=== PATIENT | male | born 1995 | race Caucasian/White ===

== ENCOUNTER 2019-06-17 13:58 | Inpatient (IN) | payer OTHER, MEDICARE, MEDICAID ==
--- NOTE | 2019-06-17 14:34 | ED ---
General Adult HPI - General Chief complaint: Psychiatric Symptoms Stated complaint: Mental health Time Seen by Provider: 06/17/19 14:15 Source: patient, police, RN notes reviewed Mode of arrival: ambulatory Limitations: no limitations - History of Present Illness Initial comments: 23-year-old male presents emergency department with police for psychiatric evaluation. Patient is having bizarre behavior, very paranoid delusional thoughts. Patient believes that his family is controlled lysis. Patient does admit to drug abuse. Denies alcohol abuse no physical complaints. Denies any homicidal or suicidal. - Related Data Home Medications Medication Instructions Recorded Confirmed Paliperidone IM [Invega Sustenna] 234 mg IM Q21D 06/17/19 06/17/19 busPIRone HCL 15 mg PO BID 06/17/19 06/17/19 Allergies Allergy/AdvReac Type Severity Reaction Status Date / Time Penicillins Allergy Unknown Verified 06/17/19 17:08 Review of Systems ROS Statement: Those systems with pertinent positive or pertinent negative responses have been documented in the HPI. ROS Other: All systems not noted in ROS Statement are negative. Past Medical History Past Medical History: No Reported History History of Any Multi-Drug Resistant Organisms: None Reported Past Surgical History: No Surgical Hx Reported Past Psychological History: Schizoaffective Disorder, Schizophrenia Smoking Status: Current every day smoker Past Alcohol Use History: None Reported, Occasional Past Drug Use History: Marijuana General Exam Limitations: no limitations General appearance: alert, in no apparent distress Head exam: Present: atraumatic, normocephalic, normal inspection Eye exam: Present: normal appearance, PERRL, EOMI. Absent: scleral icterus, conjunctival injection, periorbital swelling ENT exam: Present: normal oropharynx, mucous membranes dry. Absent: normal exam Neck exam: Present: normal inspection, full ROM. Absent: tenderness, meningismus, lymphadenopathy Respiratory exam: Present: normal lung sounds bilaterally. Absent: respiratory distress, wheezes, rales, rhonchi, stridor Cardiovascular Exam: Present: regular rate, normal rhythm, normal heart sounds. Absent: systolic murmur, diastolic murmur, rubs, gallop, clicks Psychiatric exam: Present: manic Skin exam: Present: warm, dry, intact, normal color. Absent: rash Course Vital Signs 06/17/19 14:11 Temperature 97.3 F L Pulse Rate 100 Respiratory 17 Rate Blood Pressure 143/79 O2 Sat by Pulse 100 Oximetry - Reevaluation(s) Reevaluation #1: 06/17/19 16:38 When the patient was changing into a gown nurse noted a bandage on his lower leg. This was evaluated he has 3 separate 3 cm circular malin and which there is noted Silvadene applied. Patient states that he burned himself to GERD of his tattoo. Patient was seen by his PCP and treated for this. Patient's tetanus is up-to-date. Medical Decision Making - Medical Decision Making Patient will be admitted for psychiatric treatment. - Lab Data Lab Results 06/17/19 Range/Units 15:02 Urine Opiates Screen Not Detected (NotDetected) Ur Oxycodone Screen Not Detected (NotDetected) Urine Methadone Screen Not Detected (NotDetected) Ur Propoxyphene Screen Not Detected (NotDetected) Ur Barbiturates Screen Not Detected (NotDetected) U Tricyclic Antidepress Not Detected (NotDetected) Ur Phencyclidine Scrn Not Detected (NotDetected) Ur Amphetamines Screen Not Detected (NotDetected) U Methamphetamines Scrn Not Detected (NotDetected) U Benzodiazepines Scrn Not Detected (NotDetected) Urine Cocaine Screen Not Detected (NotDetected) U Marijuana (THC) Screen Detected H (NotDetected) Disposition Clinical Impression: Psychosis Disposition: TRANSFER TO PSYCH HOSP/UNIT Time of Disposition: 17:51
[2019-06-17 15:57] LABS: Amphetamine Screen,Urine Not Detected (NotDetected); Barbiturate Screen,Urine Not Detected (NotDetected); Benzodiazepines Screen,Urine Not Detected (NotDetected); Cocaine Screen,Urine Not Detected (NotDetected); Methadone Screen, Urine Not Detected (NotDetected); Opiate Screen,Urine Not Detected (NotDetected); Oxycodone Screen, Urine Not Detected (NotDetected); Phencyclidine Screen,Urine Not Detected (NotDetected); Tricyclic Antidepressant,Urine Not Detected (NotDetected); Urn Cannabinoid Scrn Detected (NotDetected)
[2019-06-17] MEDS ORDERED: ZIPRASIDONE 20 MG VIAL IM PRN (17:54)
[2019-06-17] MEDS ORDERED: MAG HYDROX/AL HYDROX/SIMETH 30 ML CUP PO PRN (17:54)
[2019-06-17] MEDS ORDERED: LORazepam 1 MG TAB PO PRN (17:54)
[2019-06-17] MEDS ORDERED: MAGNESIUM HYDROXIDE 2,400 MG/10 ML CUP PO PRN (17:54)
[2019-06-17] MEDS ORDERED: ACETAMINOPHEN TAB 325 MG TAB PO PRN (17:54)
[2019-06-17] MEDS ORDERED: PALIPERIDONE 234 MG IM SCH (18:00)
--- NOTE | 2019-06-18 01:38 | P.CONS ---
History of Present Illness - Reason for Consult Consult date: 06/18/19 - History of Present Illness Patient is a 24-year-old male with a PMH of schizoaffective disorder and marijuana abuse who was brought to the ED due to disorganized and strange behavior. The patient was noted to be delusional and was admitted to the mental health unit for further management. Patient was evaluated at the bedside. He reported feeling okay. Noted that he is currently in the process of joining the [employer] which is why he had to burn off his tatto near his R ankle. 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 He denied any additional complaints. He denied chest pain, shortness of breath, nausea, vomiting, fever, chills, abdominal pain. He notes only mild pain at the site of the malin. Past Medical History Past Medical History: No Reported History History of Any Multi-Drug Resistant Organisms: None Reported Past Surgical History: No Surgical Hx Reported Past Psychological History: Schizoaffective Disorder, Schizophrenia Smoking Status: Current every day smoker Past Alcohol Use History: None Reported, Occasional Past Drug Use History: Marijuana Medications and Allergies Home Medications Medication Instructions Recorded Confirmed Type Paliperidone IM [Invega Sustenna] 234 mg IM Q21D 06/17/19 06/17/19 History busPIRone HCL 15 mg PO BID 06/17/19 06/17/19 History Allergies Allergy/AdvReac Type Severity Reaction Status Date / Time Penicillins Allergy Unknown Verified 06/17/19 17:08 Physical Exam Vitals: Vital Signs Temp Pulse Pulse Resp BP BP Pulse Ox 06/17/19 18:55 97 F L 89 16 134/80 06/17/19 18:15 97.7 F 68 18 113/59 95 06/17/19 14:11 97.3 F L 100 17 143/79 100 Intake and Output 06/17/19 06/17/19 06/18/19 14:59 22:59 06:59 Other: Weight 81.647 kg 87.146 kg General: non toxic, no distress, appears at stated age, normal weight Derm: circular malin noted near R ankle w/ dressing, warm, dry Head: atraumatic, normocephalic, symmetric Eyes: EOMI, no lid lag, anicteric sclera, pupils equal round reactive to light ENT: Nose and ears atraumatic, no thrush, no pharyngeal erythema Neck: No thyromegaly, no cervical lymphadenopathy, trachea midline, supple Mouth: no lip lesion, mucus membranes moist Cardiovascular: S1S2 reg, no murmur, positive posterior tibial pulse bilateral, no edema, capillary refill less than 2 seconds Lungs: CTA bilateral, no rhonchi, no rales , no accessory muscle use Abdominal: soft, nontender to palpation, no guarding, no appreciable or ganomegaly, normal bowel sounds Ext: no gross muscle atrophy, muscle strength 5 out of 5 in all 4 extremities grossly, no contractures, Neuro: CN II-XI grossly intact, light touch intact all 4 extremities, finger to nose within normal limits, Psych: Alert, oriented, delusional Results Labs: Abnormal Lab Results - Last 24 Hours (Table) 06/17/19 Range/Units 15:02 U Marijuana (THC) Screen Detected H (NotDetected) Assessment and Plan Plan: Malin overlying R medial ankle and leg -C/w wound care with Silvadene cream and dressing changes Psychosis -As per psychiatry Marijuana abuse -Advised patient on importance of cessation Thank you for allowing us to participate in the care of this patient. We will follow peripherally. Do not hesitate to contact us with questions. Someone can be reached from the [facility] hospitalist group at all hours of the day at [phone].
[2019-06-18 08:04] LABS: Basophils % (A) 0 %; Eosinophils # (A) 0.2 k/uL (0-0.7); Eosinophils % (A) 4 %; HCT 49.4 % (39.0-53.0); HGB 15.7 gm/dL (13.0-17.5); Lymphocytes # (A) 0.8 k/uL (1.0-4.8); Lymphocytes % (A) 13 %; MCH 26.5 pg (25.0-35.0); MCHC 31.7 g/dL (31.0-37.0); MCV 83.7 fL (80.0-100.0); Monocytes # (A) 0.2 k/uL (0-1.0); Monocytes % (A) 4 %; Neutrophils # (A) 4.8 k/uL (1.3-7.7); Neutrophils % (A) 78 %; Platelet Count 265 k/uL (150-450); RBC 5.91 m/uL (4.30-5.90); RDW 12.6 % (11.5-15.5); WBC 6.1 k/uL (3.8-10.6)
[2019-06-18 08:11] LABS: ALT 13 U/L (4-49); AST 20 U/L (17-59); African American GFR (CKD) >90 (>60 ml/min/1.73 sqM); Albumin 4.2 g/dL (3.5-5.0); Alkaline Phosphatase 93 U/L (38-126); Anion Gap 10 mmol/L; Blood Urea Nitrogen 8 mg/dL (9-20); Calcium 9.5 mg/dL (8.4-10.2); Carbon Dioxide 24 mmol/L (22-30); Chloride 105 mmol/L (98-107); Cholesterol 180 mg/dL (<200); Glucose 89 mg/dL (74-99); HDL Cholesterol 43 mg/dL (40-60); LDL Cholesterol,Calculated 120 mg/dL (0-99); Non-African American GFR(CKD) >90 (>60 ml/min/1.73 sqM); Potassium 4.4 mmol/L (3.5-5.1); Sodium 139 mmol/L (137-145); Total Bilirubin 0.7 mg/dL (0.2-1.3); Total Protein 6.8 g/dL (6.3-8.2); Triglycerides 86 mg/dL (<150)
[2019-06-18] MEDS ORDERED: PALIPERIDONE 234 MG IM SCH (10:00)
[2019-06-18] MEDS: NICOTINE 14MG/24HR PATCH TRANSDERM SCH (10:03)
[2019-06-18] MEDS: PALIPERIDONE 6 MG TAB.ER.24 PO SCH (10:26)
[2019-06-18] MEDS: clonazePAM 0.5 MG TAB PO PRN (10:26)
--- NOTE | 2019-06-18 10:42 | P.HP ---
Psychiatric H&P - . H&P Date: 06/18/19 History & Physical: IDENTIFYING Data: Roly Welch is a 24-year-old single male who currently lives with his foster parents in [facility], unemployed on SSD, has psychiatric history of schizoaffective disorder, and reports no history of medical problems. The patient has been admitted to our inpatient psychiatric services after been transferred from [facility] emergency room. Patient was initially brought to ED by the police with a petition for admission due to severe delusion and not able to take care of himself. The patient has been admitted on involuntary basis to our service, but during psychiatric evaluation he exhibits understanding of need for mental health treatment and he signed voluntary papers. CHIEF COMPLAINT: "My mind was messed up, maybe because I ate a whole can of butter." HISTORY OF PRESENT ILLNESS: The patient presented to emergency room by the police with a petition that patient has been delusional and he believes that he is a member of [employer] and thinks that his mother is a member of a [employer] and he is willing to kill her if she really is. According to ED note the patient presented with bizarre behavior, very paranoid and delusional. Patient admits to use drugs, denies homicidal or suicidal thoughts. During psychiatric evaluation today the patient presented with delusional thoughts, very guarded and paranoid. He reports history of a schizoaffective disorder as a psychiatric diagnosis but he didn't give clear information about when was the last time he received any treatment. Patient attributed his delusional thoughts because he ate a whole can of butter yesterday. He reports that he called police on the road and told them that his foster parents are terrorist. When asking today about his thoughts he was doubting that his parents are terrorist, but he still believes that he is a [employer] member. When asking him to give more information about being [employer] member, he answered "it's a long story and I can't tell". The patient was tense, irritable with times is staring and stuttering with his speech. He was not very informative giving history and he refused to answer many questions. Patient reports history of depression started when he was 12-year-old and he reports previous history of suicidal attempts, last time was 6 months ago when he tried to cut his wrist. He reports previous episodes of psychosis mainly hearing voices and visual hallucinations and first time has psychotic episode was at age 18. He denies any previous manic episodes. Patient reports last time was feeling "very bad depression" was one year ago. Patient denies any current symptoms of depression including feeling guilty, lack of motivation, sleep disturbances, feeling hopeless, helpless and worthless, or suicide. He denies any current or history of bigg including symptoms of a euphoric mood, lack need to sleep due to increased activities, sense of being invincible, or irrational behavior. He admits for history of psychosis but he was vague answering questions about his symptoms. He reports last time was hearing voices yesterday and the voices was telling him his parents are terrorist. He couldn't recognize the voice if a male or female and refused to give any further information. He reports history of visual hallucinations in the past that he used to see "figures", with the last time "long time ago". Even the patient denies feeling paranoid, but he was presented very paranoid, guarded, and refused to answer many questions "it is too personal". He admits for suffering from severe anxiety for most of the time with nonstop racing thoughts "couldn't shut my mind down", feeling tense for most of the time, and couldn't relax. He reports history of panic attacks with the last time was one year ago "it was not often". He admits for history of nightmares but he refused to give any further information. PAST PSYCHIATRIC HISTORY: Previous diagnoses: Reports previous diagnosis of schizoaffective disorder Previous psychiatric hospitalizations: Reports history of previous multiple psychiatric hospitalizations and last time was 6 months ago at [facility] . Previous suicide attempts: Admits for previous suicidal attempts but any further information besides last time was 6 months ago when he tried to cut his wrist. Previous outpatient psychiatric treatment: Reports previous outpatient psychiatric treatment, but was very vague but when was the last time seen by psychiatrist or received any mental health treatment. He was talking about 2 years was the last time seen by psychiatrist, but reports last time he received in [facility] was "few month ago". Current psychiatric medications: Patient is not currently taking any psychiatric medications. Previous medication trials: Patient was not able to give any informative history about his previous psychiatric medication trials, but he mentioned previous treatment with in [place], Wellbutrin, Klonopin, BuSpar, Abilify, Seroquel. SUBSTANCE ABUSE HISTORY: Nicotine: Admits for smoking cigarettes "a lot". Alcohol: Reports drinking "sometimes, not very often"., Last time was a week ago. Denies any history of DUIs, severe alcohol intoxication, or alcohol withdrawal symptoms. Admits for smoking marijuana daily since he was 15 with the last time was yesterday. When he was asking about use of other street drugs, he refused to answer "why you asking me these questions". Social History: Patient was not cooperative giving informative social history, but he reports was born in [place] and raised by his biological parents until he was 15 then he moved to foster parents. Reports completed school up to 11th grade. History of psychological trauma: Denies history of psychological trauma FAMILY HISTORY: Patient doesn't know much about his biological family, but reports his bio logical mother suffered from depression. Medical History: Denies any history of medical problems MENTAL STATUS EVALUATION: Appearance: Appears stated age, not well groomed, partially disheveled, average body built, and no specific features. Gait/ posture: Steady gait, normal arm swinging, no abnormal movements, with relaxed posture. Attitude and Behavior: Not cooperative, poor eye contact during course of interview. Motor Activity: Increased psychomotor activity. Speech: spontaneous, decreased rate, rhythm, and articulation. Increased volume. To some degree pressured. Language: Articulating, naming objects and repeat phrases. Mood: Irritable Affect: Restricted. Thought process: impoverished, thought blocking. Association: loose Thought content: Paranoid delusions, grandiosity delusions, denies suicidal thoughts, denies homicidal thoughts, Denies intentions, or plans. Perception: Reports auditory hallucinations Orientation: Patient was oriented to time, place, person, and situation Insight regarding psychiatric condition: Fair Judgment regarding daily activities and social situation: Fair Impulse control: Limited Strengths: Social Security disability. Housing. Stable general medical condition. Challenges: Poor compliance with treatment. Limited access to treatment. Marijuana use Allergies Allergy/AdvReac Type Severity Reaction Status Date / Time Penicillins Allergy Unknown Verified 06/17/19 17:08 Vital Signs Temp 97 F L 06/17/19 18:55 Pulse 89 06/17/19 18:55 Resp 16 12/24/19 18:55 BP 134/80 06/17/19 18:55 Pulse Ox 95 06/17/19 18:15 Intake & Output 06/17/19 06/18/19 06/18/19 18:59 06:59 18:59 Weight 87.146 kg Review of Lab results: Laboratory Last Values WBC 6.1 k/uL (3.8-10.6) 06/18/19 07:25 RBC 5.91 m/uL (4.30-5.90) H 06/18/19 07:25 Hgb 15.7 gm/dL (13.0-17.5) 06/18/19 07:25 Hct 49.4 % (39.0-53.0) 06/18/19 07:25 MCV 83.7 fL (80.0-100.0) 06/18/19 07:25 MCH 26.5 pg (25.0-35.0) 06/18/19 07:25 MCHC 31.7 g/dL (31.0-37.0) 06/18/19 07:25 RDW 12.6 % (11.5-15.5) 06/18/19 07:25 Plt Count 265 k/uL (150-450) 06/18/19 07:25 Neutrophils % 78 % 06/18/19 07:25 Lymphocytes % 13 % 06/18/19 07:25 Monocytes % 4 % 06/18/19 07:25 Eosinophils % 4 % 06/18/19 07:25 Basophils % 0 % 06/18/19 07:25 Neutrophils # 4.8 k/uL (1.3-7.7) 06/18/19 07:25 Lymphocytes # 0.8 k/uL (1.0-4.8) L 06/18/19 07:25 Monocytes # 0.2 k/uL (0-1.0) 06/18/19 07:25 Eosinophils # 0.2 k/uL (0-0.7) 06/18/19 07:25 Basophils # 0.0 k/uL (0-0.2) 06/18/19 07:25 Sodium 139 mmol/L (137-145) 06/18/19 07:25 Potassium 4.4 mmol/L (3.5-5.1) 06/18/19 07:25 Chloride 105 mmol/L (98-107) 06/18/19 07:25 Carbon Dioxide 24 mmol/L (22-30) 06/18/19 07:25 Anion Gap 10 mmol/L 06/18/19 07:25 BUN 8 mg/dL (9-20) L 06/18/19 07:25 Creatinine 1.02 mg/dL (0.66-1.25) 06/18/19 07:25 Est GFR (CKD-EPI)AfAm >90 (>60 ml/min/1.73 sqM) 06/18/19 07:25 Est GFR (CKD-EPI)NonAf >90 (>60 ml/min/1.73 sqM) 06/18/19 07:25 Glucose 89 mg/dL (74-99) 06/18/19 07:25 Calcium 9.5 mg/dL (8.4-10.2) 06/18/19 07:25 Total Bilirubin 0.7 mg/dL (0.2-1.3) 06/18/19 07:25 AST 20 U/L (17-59) 06/18/19 07:25 ALT 13 U/L (4-49) 06/18/19 07:25 Alkaline Phosphatase 93 U/L (38-126) 06/18/19 07:25 Total Protein 6.8 g/dL (6.3-8.2) 06/18/19 07:25 Albumin 4.2 g/dL (3.5-5.0) 06/18/19 07:25 Triglycerides 86 mg/dL (<150) 06/18/19 07:25 Cholesterol 180 mg/dL (<200) 06/18/19 07:25 LDL Cholesterol, Calc 120 mg/dL (0-99) H 06/18/19 07:25 HDL Cholesterol 43 mg/dL (40-60) 06/18/19 07:25 TSH 0.542 mIU/L (0.465-4.680) 06/18/19 07:25 Urine Opiates Screen Not Detected (NotDetected) 06/17/19 15:02 Ur Oxycodone Screen Not Detected (NotDetected) 06/17/19 15:02 Urine Methadone Screen Not Detected (NotDetected) 06/17/19 15:02 Ur Propoxyphene Screen Not Detected (NotDetected) 06/17/19 15:02 Ur Barbiturates Screen Not Detected (NotDetected) 06/17/19 15:02 U Tricyclic Antidepress Not Detected (NotDetected) 06/17/19 15:02 Ur Phencyclidine Scrn Not Detected (NotDetected) 06/17/19 15:02 Ur Amphetamines Screen Not Detected (NotDetected) 06/17/19 15:02 U Methamphetamines Scrn Not Detected (NotDetected) 06/17/19 15:02 U Benzodiazepines Scrn Not Detected (NotDetected) 06/17/19 15:02 Urine Cocaine Screen Not Detected (NotDetected) 06/17/19 15:02 U Marijuana (THC) Screen Detected (NotDetected) H 06/17/19 15:02 Formulation/Summary: No clear information about family history of mental illness, but probably his mother was suffering from depression as he reported, and the patient has been using marijuana on a daily basis which was confronted by the drug screen and both family history and marijuana use are contributing biological factors predisposing to his presentation. Current precipitating factors include: Note taking psychiatric medications , no access to treatment , Poor compliance with treatment Perpetuating factors: Using marijuana Protective biological factors: Restart on medications and continue follow-up after discharge Assessment: Schizoaffective disorder bipolar type. Rule out Cannabis use disorder, severe. Rule out generalized anxiety disorder. TREATMENT PLAN/RECOMMENDATIONS: Medical Decision making: The patient presented with severe psychosis, delusional, and bizarre behavior. The patient at high risk to hurt himself and others if in the is not in the inpatient setting. The patient's psychiatric symptoms are not stable and he needs further management of psychiatric medications and further planning for discharge. Therefore, inpatient level of care is needed. Continue the patient inpatient for safety. Continue the patient under 15 minutes safe check for safety. The patient will also be provided with individual therapy, group therapy, substance abuse counseling, gain insight, and coping skills. Consider medical consultation if any acute medical issue arise. Medications: Start invega 6 mg daily for psychotic symptoms and as a mood stabilizer. Start Klonopin 0.5 mg 3 times daily as needed for anxiety. Prognosis is guarded, considering the patient's history of poor compliance with treatment, and apparently was not receiving any medications for the last few months. The patient will be assessed on daily basis for his depression, suicidal ideation, and will be discharged back to his outpatient mental health provider upon stabilization. EXPECTED LENGTH OF STAY: 5-7 days. 06/18/19 10:12
[2019-06-18] MEDS ORDERED: INVEGA SUSTENNA 234 MG IM SCH (12:00)
[2019-06-19] MEDS: PALIPERIDONE 6 MG TAB.ER.24 PO SCH (08:44)
[2019-06-19] MEDS: NICOTINE 14MG/24HR PATCH TRANSDERM SCH (08:44)
[2019-06-19] MEDS: clonazePAM 0.5 MG TAB PO PRN (08:44)
[2019-06-19 10:24] LABS: Hemoglobin A1C 5.1 % (4.0-6.0)
[2019-06-19] MEDS ORDERED: traZODone HCL 50 MG TAB PO PRN (12:21)
--- NOTE | 2019-06-19 12:21 | P.PN ---
Progress Note - Text Progress Note Date: 06/19/19 Chief complaint: "I feel tired now and little tense" Subjective: The patient has been seen today as follow-up, chart reviewed, case discussed with the treatment team. Patient slept about one hour last night. Patient has not been going to groups and other unit activities. Patient reports eating "good" with no appetite problems. Patient continued to present psychotic and as per nursing report he was pacing all night. Patient still delusional that he is a [employer] member. He was very guarded and superficial during evaluation today. He denies depression and denies any S/H ideation. Patient reports continued to hear voices "they are nice voices" but didn't give any further details. He denies CAH to hurt self or others. Patient reports taking his medications and denies any SEs, but nursing report that patient tried cheeking his medications few times yesterday. Patient denies any physical symptoms including headache, chest pain, GI or urinary symptoms. Objective: Vitals has been reviewed. Mental status examination: Appearance: Appears stated age, not well groomed, partially disheveled, average body built, and no specific features. Gait/ posture: Steady gait, normal arm swinging, no abnormal movements, with relaxed posture. Attitude and Behavior: Not cooperative, poor eye contact during course of interview. Motor Activity: Increased psychomotor activity. Speech: spontaneous, decreased rate, rhythm, and articulation. Increased volume. To some degree pressured. Language: Articulating, naming objects and repeat phrases. Mood: Irritable Affect: Restricted. Thought process: impoverished, thought blocking. Association: loose Thought content: Paranoid delusions, grandiosity delusions, denies suicidal thoughts, denies homicidal thoughts, Denies intentions, or plans. Perception: Reports auditory hallucinations Orientation: Patient was oriented to time, place, person, and situation Insight regarding psychiatric condition: Fair Judgment regarding daily activities and social situation: Fair Impulse control: Limited Assessment: Schizo-affective disorder bipolar type. Rule out Cannabis use disorder, severe. Rule out generalized anxiety disorder. Plan: Continue inpatient level of care due to still meets criteria for inpatient psychiatric hospitalization been psychotic, delusions and could be danger for self and others due to psychotic symptoms. Collateral information regarding previous psychiatric treatment requested from [facility] and treatment team. Last time received Invega injection or any psychiatric treatment, previous medication trials. Precautions: Continue 15 minutes check for safety. Consider medical consultation if any acute medical issues arise. Provide the patient individual, group therapy, substance use disorder counseling to give better insight and learn coping skills. Medications: Continue Invega 6 mg daily for psychotic symptoms and as a mood stabilizer. Continue Klonopin 0.5 mg 3 times daily as needed for anxiety. Start Trazodone 50 mg HS PRN for insomnia Discharge patient to OUTPATIENT services upon a stabilization Prognosis: No improvement Expected LOS: 5-7 days
[2019-06-20] MEDS: PALIPERIDONE 6 MG TAB.ER.24 PO SCH (08:33)
[2019-06-20] MEDS: NICOTINE 14MG/24HR PATCH TRANSDERM SCH ×2 (08:33)
[2019-06-20] MEDS: clonazePAM 0.5 MG TAB PO PRN ×2 (08:35→18:52)
--- NOTE | 2019-06-20 14:29 | P.PN ---
Progress Note - Text Progress Note Date: 06/20/19 Subjective: The patient has been seen today as follow-up, chart reviewed, case discussed with the treatment team. Patient reports better sleep last night with trazodone and denies any appetite problems. Patient continued to present with paranoid behavior and internally preoccupied even he denies paranoid thoughts or delusions but he is superficial, guarded and pacing for most of the time. He denies S/H ideation and denies any A/V hallucinations. Patient not talking about been [facility] member and no grandiosity thoughts or delusions addressed or reported. Patient denies any physical symptoms including headache, chest pain, GI or urinary symptoms. Objective: Vitals has been reviewed. Mental status examination: Appearance: Appears stated age, fairly groomed, average body built, and no specific features. Gait/ posture: Steady gait, normal arm swinging, no abnormal movements, with re laxed posture. Attitude and Behavior: Not fully cooperative, intermittent eye contact during course of interview. Motor Activity: Normal psychomotor activity. Speech: spontaneous, decreased rate, rhythm, and articulation. Increased volume. To some degree pressured. Language: Articulating, naming objects and repeat phrases. Mood: Irritable Affect: Restricted. Thought process: More linear and goal-directed. Thought content: Paranoid ideation, denies suicidal thoughts, denies homicidal thoughts, Denies intentions, or plans. Perception: Denies auditory hallucinations Orientation: Patient was oriented to time, place, person, and situation Insight regarding psychiatric condition: Fair Judgment regarding daily activities and social situation: Fair Impulse control: Limited Assessment: Schizo-affective disorder bipolar type. Rule out Cannabis use disorder, severe. Rule out generalized anxiety disorder. Plan: Continue inpatient level of care due to still meets criteria for inpatient psychiatric hospitalization been psychotic, delusions and could be danger for self and others due to psychotic symptoms. Collateral information regarding previous psychiatric treatment requested from social secretary and treatment team. Last time received Invega injection or any psychiatric treatment, previous medication trials. Precautions: Continue 15 minutes check for safety. Consider medical consultation if any acute medical issues arise. Provide the patient individual, group therapy, substance use disorder counseling to give better insight and learn coping skills. Medications: Increase Invega 9 mg daily for psychotic symptoms and as a mood stabilizer. Continue Klonopin 0.5 mg 3 times daily as needed for anxiety. Continue Trazodone 50 mg HS PRN for insomnia Discharge patient to OUTPATIENT services upon a stabilization Prognosis: No improvement Expected LOS: 3-5 days
[2019-06-21] MEDS: clonazePAM 0.5 MG TAB PO PRN ×4 (03:08→21:06)
[2019-06-21] MEDS: OLANZapine ODT 5 MG TAB PO PRN ×2 (05:18→17:43)
[2019-06-21] MEDS: NICOTINE 14MG/24HR PATCH TRANSDERM SCH ×3 (11:22→12:42)
[2019-06-21] MEDS: PALIPERIDONE 3 MG TAB.ER.24 PO SCH (11:22)
--- NOTE | 2019-06-21 16:49 | P.PN ---
Progress Note - Text Progress Note Date: 06/21/19 Subjective: The patient has been seen today as follow-up, chart reviewed, case discussed with the treatment team. Patient reports trouble sleeping last night with interrupted sleep and requested to try higher dose of the trazodone. He denies any appetite problems, and he continued to attend groups and other unit activities. Patient reports feeling stable emotionally and he denies any depression, hopelessness, or suicidal thoughts. He denies any severe mood swings, irritability, agitation, and no behavior problems have been reported. Patient denies any paranoid ideation and no delusions could be elicited. He denies any physical symptoms including chest pain or shortness of breath. He continued to take his medications and no side effects reported. Objective: Vitals has been reviewed. Mental status examination: Appearance: Appears stated age, fairly groomed, average body built, and no specific features. Gait/ posture: Steady gait, normal arm swinging, no abnormal movements, with relaxed posture. Attitude and Behavior: Not fully cooperative, intermittent eye contact during course of interview. Motor Activity: Normal psychomotor activity. Speech: spontaneous, decreased rate, rhythm, and articulation. Increased volume. To some degree pressured. Language: Articulating, naming objects and repeat phrases. Mood: Anxious Affect: Restricted. Thought process: More linear and goal-directed. Thought content: Paranoid ideation, denies suicidal thoughts, denies homicidal thoughts, Denies intentions, or plans. Perception: Denies auditory hallucinations Orientation: Patient was oriented to time, place, person, and situation Insight regarding psychiatric condition: Fair Judgment regarding daily activities and social situation: Fair Impulse control: Improving Assessment: Schizo-affective disorder bipolar type. Rule out Cannabis use disorder, severe. Rule out generalized anxiety disorder. Plan: Continue inpatient level of care due to still meets criteria for inpatient psychiatric hospitalization been psychotic, delusions and could be danger for self and others due to psychotic symptoms. Collateral information regarding previous psychiatric treatment requested from social media sr strategy manager and treatment team. Last time received Invega injection or any psychiatric treatment, previous medication trials. Precautions: Continue 15 minutes check for safety. Consider medical consultation if any acute medical issues arise. Provide the patient individual, group therapy, substance use disorder counseling to give better insight and learn coping skills. Medications: Continue Invega 9 mg daily for psychotic symptoms and as a mood stabilizer. Continue Klonopin 0.5 mg 3 times daily as needed for anxiety. Increase Trazodone 100 mg HS PRN for insomnia Start Vistaril 50 mg 3 times a day as needed for anxiety Discharge patient to OUTPATIENT services upon a stabilization Prognosis: Improving
[2019-06-21] MEDS: hydrOXYzine PAMOATE 25 MG CAP PO SCH (17:43)
[2019-06-22] MEDS ORDERED: HALOPERIDOL LACTATE 5 MG/ML 1 ML VIAL IM PRN (00:39)
[2019-06-22] MEDS ORDERED: HALOPERIDOL LACTATE 5 MG/ML 1 ML VIAL ONE (00:41)
[2019-06-22] MEDS ORDERED: ZIPRASIDONE 20 MG VIAL IM STA (00:46)
[2019-06-22] MEDS ORDERED: ZIPRASIDONE 20 MG VIAL IM ONE (00:47)
[2019-06-22] MEDS: PALIPERIDONE 3 MG TAB.ER.24 PO SCH (08:59)
[2019-06-22] MEDS: NICOTINE 14MG/24HR PATCH TRANSDERM SCH (08:59)
[2019-06-22] MEDS: hydrOXYzine PAMOATE 25 MG CAP PO SCH (08:59)
[2019-06-22] MEDS: clonazePAM 0.5 MG TAB PO PRN (09:01)
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
[2019-06-23] MEDS: PALIPERIDONE 3 MG TAB.ER.24 PO SCH (10:14)
[2019-06-23] MEDS: NICOTINE 14MG/24HR PATCH TRANSDERM SCH ×2 (10:16→12:04)
[2019-06-23] MEDS ORDERED: ZIPRASIDONE 20 MG VIAL IM PRN (10:49)
[2019-06-23] MEDS: clonazePAM 0.5 MG TAB PO PRN ×3 (12:04→21:20)
[2019-06-23] MEDS: OLANZapine ODT 5 MG TAB PO PRN (21:20)
[2019-06-23] MEDS: traZODone HCL 100 MG TAB PO PRN (21:20)
[2019-06-24] MEDS: PALIPERIDONE 3 MG TAB.ER.24 PO SCH (08:57)
[2019-06-24] MEDS: NICOTINE 14MG/24HR PATCH TRANSDERM SCH (08:57)
[2019-06-24] MEDS: clonazePAM 0.5 MG TAB PO PRN (08:59)
--- NOTE | 2019-06-24 10:12 | P.PN ---
Progress Note - Text Interval history: The patient is found in his room sleeping he is verbally arousable. He prefers to speak in his room. He continues to be on one-to-one supervision with security. He states that he would like to be discharged. He states that he slept well last evening appetite has been good. He reports some group participation. He describes an ongoing auditory hallucination and states "that will never go away". He indicates it's noncommanding and only makes positive comments. He continues to voice concerns that his foster parents could be terrorist. He states they are good people but things just don't add up. No reports of any aggressive behavior in the last 24 hours. He states that he is able to control his behavior. He found himself frustrated by appear this morning but was able to walk away and go to his room. Mental status exam: The patient is alert he is lying in bed. Eye contact is intermittent. Speech is fluent and spontaneous nonpressured. Indicates his mood is fine. Affect is constricted for the most part there were times where he demonstrated smiling. He endorses a noncommanding auditory hallucinations and that has been chronically present. He continues to express concerns that family members could be terrorists. At times he appears conflicted in this belief. He is reporting no thoughts of harming himself or harming others. He reports no visual hallucinations. He appears frustrated but is able to control behavior during our session. He demonstrated no verbal or physical aggressiveness. Insight and judgment still impaired. Plan: The patient will continue on his current psychotropic medication. We will continue to monitor for symptoms of psychosis. During treatment team meeting we will discuss the continued need for one-to-one supervision. Vital signs reviewed. He requires continued psychiatric hospitalization for further evaluation and treatment.
[2019-06-24 14:00] VITALS: BMI 26.2
[2019-06-24] MEDS ORDERED: QUEtiapine 100 MG TAB PO SCH (21:00)
[2019-06-24] MEDS: traZODone HCL 100 MG TAB PO PRN (21:05)
[2019-06-25] MEDS: NICOTINE 14MG/24HR PATCH TRANSDERM SCH (08:54)
[2019-06-25] MEDS: PALIPERIDONE 6 MG TAB.ER.24 PO SCH (08:54)
[2019-06-25] MEDS: clonazePAM 0.5 MG TAB PO PRN (08:56)
--- NOTE | 2019-06-25 10:09 | P.PN ---
Progress Note - Text Interval history: The patient is found in his room he follows me to a conference room to speak. He indicates his mood is better. He feels that the medication change was helpful. He is glad that the oral invega has been reduced. He has no reports of side effect yet with the Seroquel. He states that he did eat breakfast this morning. He reports he is attending groups but he was found in his room sleeping. He states that his foster mother has been trying to call him but he is just hanging up on her and he states "I can't deal with that". He continues to feel that his foster family may be terrorists. He states his foster mother never has company over she is very private and never discusses anything about herself. He states that he is considering moving to [place] just to get away from the situation. He states that "you people have me completely misunderstood". He states that he is a nonviolent person on the outside. He expresses some discomfort he has with other male patients talking to a female peer on the mental health unit. Mental status exam: The patient is alert he is dressed in his own clothing hygiene is adequate. Eye contact is staring in nature. Initially he has a more relaxed affect but this quickly changes to an affect that appears more frustrated and irritable. He demonstrates no verbal or physical aggressiveness during the session but does become more guarded. He endorses no hallucinations today. He does spontaneously speak of his paranoid thoughts that his foster family may be terrorists. He describes a plan to flee the situation by moving to [place] although he has no support there. He is reporting no thoughts of harming himself or others. He does feel anger towards others at times but states he's is trying to walk away from those individuals when it occurs. Insight and judgment remain poor. He demonstrates no involuntary repetitive movements. Plan: The patient will continue on his current psychotropic medication however we will titrate the Seroquel to 150 mg at bedtime. He has already received the Invega Sustenna 234 mg injection on 06/18/2019. We will work on reducing the oral dose of the invega and we will continue titrating the Seroquel upwards as an augmentation strategy. He continues to be quite psychotic his affect seems to change fairly quickly and he continues to experience feelings of anger and irritability. He describes a preoccupation with a female peer on the mental health unit. For these reasons we will continue the one-to-one supervision due to his risk of again being impulsively violent. We will monitor him for safety he is encouraged to participate in the milieu. Vital signs reviewed. He requires continued psychiatric hospitalization for his safety.
[2019-06-25] MEDS: QUEtiapine 100 MG TAB PO SCH (20:17)
[2019-06-26] MEDS: NICOTINE 14MG/24HR PATCH TRANSDERM SCH (09:08)
[2019-06-26] MEDS: PALIPERIDONE 6 MG TAB.ER.24 PO SCH (09:08)
[2019-06-26] MEDS: clonazePAM 0.5 MG TAB PO PRN ×2 (09:12→20:16)
--- NOTE | 2019-06-26 12:15 | P.PN ---
Progress Note - Text Progress Note Date: 06/26/19 Interval history: Patient was seen for cross coverage for Dr. Dickson today. Patient continues to be on one-to-one sitter for safety. Patient was seen in his room brushing his teeth and was agreeable to speak to health science writer. Patient appeared to be more directable however continues to have poor insight and judgment. He spoke about his medications claiming that the Invega Sustenna "never works for me" and states that he still feels impulsive. Patient claims that his mood has been gradually improving since on the unit and denies any anxiety at this time. Patient has been taking Klonopin when necessary throughout the day when he feels "angry and anxious". Patient claims that he has been going to groups and try to participate and states that he is sleeping well throughout the night. Patient claims that he has not spoken to his parents and became defensive when asked about his family. Patient was focused on discharge however was directable when he was told that she would not be discharged today and was agreeable to stay. He admits to fair energy and appetite. At this time patient denies any suicidal or homicidal ideations intent or plan. Denies any visual hallucinations however does admit to having auditory hallucinations and states that they're "all the time" however states that they're not negative. Patient denies any side effects from the medications and has been compliant with meds. Mental status exam: General Appearance: Patient appears to be stated age is alert, directable and attempts to cooperate. Patient has fair hygiene and grooming. Behavior: No agitated behavior. Patient is calm and directable Speech: Patient's speech is fluent and nonpressured. Mood/Affect: Mood is improving mildly, affect is congruent and blunted Suicidality/Homicidality: Patient denies having any suicidal or homicidal ideation intent or plan. Perceptions: Patient denies visual hallucinations. He admits to auditory hallucinations stating they're "all the time" and does not elaborate more on them. Though content/process: Poverty of content and is concrete. Focused on disch arge and minimizes symptoms. Memory and concentration: AOX3, grossly intact for the purposes of this session Judgment and insight: Poor, improving mildly Assessment/Plan: Continue with current diagnosis. Patient continues to meet criteria for inpatient psychiatric admission for symptom stabilization and safety. Patient will be maintained on current psychotropic medication regimen. Patient received the Invega Sustenna 234 mg injection on 06/18/2019. Monitor for medication compliance and for any psychotropic medication side effects. Will continue to monitor ongoing response to treatment. Continue with one-to-one sitter for safety and patient to be considered tomorrow for possible discontinuation/trial off of sitter as patient is gradually improving in terms of his lability/impulsivity and psychosis. Encouraged to continue participating in the milieu. Vital signs reviewed.
[2019-06-26] MEDS: QUEtiapine 100 MG TAB PO SCH (20:16)
[2019-06-27] MEDS: NICOTINE 14MG/24HR PATCH TRANSDERM SCH (08:47)
[2019-06-27] MEDS: PALIPERIDONE 6 MG TAB.ER.24 PO SCH (08:47)
[2019-06-27] MEDS: clonazePAM 0.5 MG TAB PO PRN ×2 (08:48→20:03)
--- NOTE | 2019-06-27 10:25 | P.PN ---
Progress Note - Text Interval history: The patient is found in the hallway he follows me to an interview room. He indicates his mood is getting better. He has been taken off of one-to-one supervision. He reports that he slept well last night staff reportedly slept 6 hours. Appetite stable. He continues to comply with his psychotropic medication. He states he is primarily focused on discharge. He vacillates between staying locally or wanting to move to [place]. He indicates that he could stay with a female that was just recently discharged from the unit. That plan was discouraged. He was reminded that once discharge he would need to focus on his own stabilization and to utilize other supports. We reviewed his psychotropic medication. We discussed decreasing the Invega further an increase in the Seroquel. He asks that BuSpar be restarted as he has found that helpful for anxiety in the past. He indicates still feeling on edge. Mental status exam: The patient is alert he is dressed in his own clothing hygiene is adequate. Eye contact is appropriate. Speech is fluent and spontaneous nonpressured. He reports having no suicidal or homicidal ideation intent or plan. When asked about his symptoms of psychosis he is more guarded. He states "I'm just pushing that out of my mind". He still indicates however he would prefer to leave the area so as not to be around "the same stuff". He endorses continued auditory hallucination. He states it's noncommanding usually the voices positive and rarely would be negative in terms of content. He is reporting no visual hallucinations. He demonstrates no verbal or physical aggressiveness during the session he demonstrates no involuntary repetitive movements. Thought process still demonstrate some disorganization at times. Specifically he seems to be vacillating between a variety of potential discharge plans. He does seem to lack insight into his symptoms and need for support upon discharge. Plan: The patient will continue on his current medication however we will reduce the oral Invega to 3 mg daily Seroquel will be increased to 200 mg at bedtime we will initiate BuSpar 10 mg twice daily. We may titrate the BuSpar further. We will continue to monitor him for safety. He is encouraged to fully participate in the milieu. Vital signs reviewed. He requires continued psychiatric hospitalization to stabilize further. He is not yet ready for a lesser level of care.
[2019-06-27] MEDS: busPIRone HCl 10 MG TAB PO SCH ×2 (10:49→20:03)
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
[2019-06-27] MEDS: COLLAGENASE 250 UNIT/GM OINTMENT 30 GM TUBE TOPICAL SCH (12:00)
[2019-06-27] MEDS: QUEtiapine 200 MG TAB PO SCH (20:03)
[2019-06-28] MEDS: clonazePAM 0.5 MG TAB PO PRN ×2 (03:02→16:59)
[2019-06-28] MEDS: NICOTINE 14MG/24HR PATCH TRANSDERM SCH (08:13)
[2019-06-28] MEDS: busPIRone HCl 10 MG TAB PO SCH ×2 (08:13→20:55)
[2019-06-28] MEDS: PALIPERIDONE 3 MG TAB.ER.24 PO SCH (08:13)
[2019-06-28] MEDS: COLLAGENASE 250 UNIT/GM OINTMENT 30 GM TUBE TOPICAL SCH (10:15)
--- NOTE | 2019-06-28 13:42 | P.PN ---
Subjective Progress Note Date: 06/28/19 The patient seen and chart reviewed. The patient reports some improvement in mood and functioning. The patient reports difficulty falling asleep but was able to stay asleep last night. The patient reports good appetite. He has been cooperative and compliant with the treatment on the unit. The patient shows no agitation at this time. The patient is pleasant and cooperative during the interview. He denies any auditory or visual hallucinations. He denies any suicidal or homicidal ideations at this time. The patient denies any side effects of the medications at this time. Objective - Vital Signs Vital signs: Vital Signs Temp 97.7 F 06/28/19 03:05 Pulse 84 06/28/19 03:05 Resp 16 06/28/19 03:05 BP 135/77 06/28/19 03:05 Pulse Ox 97 06/27/19 06:37 - Exam Mental Status Exam: General Appearance: Patient appears to be stated age is alert, directable. fPatient has fair eye contact. Behavior: Patient is seated without any agitated behavior. Appears to be anxious Speech: Patient's speech is goal-directed and nonpressured. soft tone. Mood/Affect: Patient reports their mood/anxiety is proving Suicidality/Homicidality: Patient reports having no suicidal ideation. Perceptions: Patient reports no auditory or visual hallucinations Though content/process: No Paranoia Memory and concentration: AOX3, grossly intact for the purposes of this session. Judgment and insight: Limited - Labs CBC & Chem 7: 06/18/19 07:25 06/18/19 07:25 Assessment and Plan Assessment: Assessment: Schizoaffective disorder bipolar type. Rule out Cannabis use disorder, severe. Rule out generalized anxiety disorder. Plan: Continue Invega to 3 mg daily. ContinueSeroquel 200 mg at bedtime. Increase BuSpar 15 mg twice daily. We will continue to monitor him for safety. He is encouraged to fully participate in the milieu. Vital signs reviewed. He requires continued psychiatric hospitalization to stabilize further. He is not yet ready for a lesser level of care.
[2019-06-28] MEDS: QUEtiapine 200 MG TAB PO SCH (20:55)
[2019-06-29] MEDS: busPIRone HCl 10 MG TAB PO SCH (08:33)
[2019-06-29] MEDS: PALIPERIDONE 3 MG TAB.ER.24 PO SCH (08:33)
[2019-06-29] MEDS: NICOTINE 14MG/24HR PATCH TRANSDERM SCH (08:33)
[2019-06-29] MEDS: COLLAGENASE 250 UNIT/GM OINTMENT 30 GM TUBE TOPICAL SCH (08:33)
--- NOTE | 2019-06-29 13:12 | P.PN ---
Subjective Progress Note Date: 06/29/19 The patient seen and chart reviewed. The patient reports doing okay and denies any new problems at this time. The patient reports good sleep and appetite. He reports attending and participating actively in milieu therapy. The patient reports that the voices are improving. He denies any crying spells or panic attacks. The patient denies any active suicidal, homicidal or paranoid ideations at this time. The patient denies any side effects on the medications. Objective - Vital Signs Vital signs: Vital Signs Temp 97.7 F 06/28/19 03:05 Pulse 126 H 06/29/19 08:35 Resp 20 06/29/19 08:35 BP 117/65 06/29/19 08:35 Pulse Ox 97 06/29/19 08:35 Intake & Output 06/28/19 06/29/19 06/29/19 18:59 06:59 18:59 Weight 83.5 kg - Exam Mental Status Exam: General Appearance: Patient appears to be stated age is alert, directable. fPatient has fair eye contact. Behavior: Patient is seated without any agitated behavior. Speech: Patient's speech is goal-directed and nonpressured. soft tone. Mood/Affect: Patient reports their mood/anxiety is proving Suicidality/Homicidality: Patient reports having no suicidal ideation. Perceptions: Patient reports no auditory or visual hallucinations Though content/process: No Paranoia Memory and concentration: AOX3, grossly intact for the purposes of this session. Judgment and insight: Limited - Labs CBC & Chem 7: 06/18/19 07:25 06/18/19 07:25 Assessment and Plan Assessment: Assessment: Schizoaffective disorder bipolar type. Rule out Cannabis use disorder, severe. Rule out generalized anxiety disorder. Plan: Continue Invega to 3 mg daily. Continue Seroquel 200 mg at bedtime. Continue BuSpar 15 mg twice daily. We will continue to monitor him for safety. He is encouraged to fully participate in the milieu. Vital signs reviewed. He requires continued psychiatric hospitalization to stabilize further. .
[2019-06-29] MEDS: busPIRone HCl 5 MG TAB PO SCH (20:36)
[2019-06-29] MEDS: QUEtiapine 200 MG TAB PO SCH (20:36)
[2019-06-30] MEDS: busPIRone HCl 5 MG TAB PO SCH ×2 (08:27→20:10)
[2019-06-30] MEDS: NICOTINE 14MG/24HR PATCH TRANSDERM SCH (08:27)
[2019-06-30] MEDS: PALIPERIDONE 3 MG TAB.ER.24 PO SCH (08:28)
[2019-06-30] MEDS: COLLAGENASE 250 UNIT/GM OINTMENT 30 GM TUBE TOPICAL SCH (09:55)
--- NOTE | 2019-06-30 11:13 | P.PN ---
Progress Note - Text Interval history: The patient is found in the hallway he follows me to an interview room. He indicates his mood is improved. He states that he had visitation twice over the weekend from patients that were just recently discharged. He reports that he spoke to in but does not discuss the nature of that conversation. He was served with a notice that he will need to attend a hearing regarding the appointment of a guardian for him. He is frustrated by that development and states it is unnecessary. We reviewed his psychotropic medications he has no questions or concerns. The BuSpar was titrated further. We discussed his previous concerns that his foster family were terrorist. He states it's possible that they are not. He indicates that he has no intent or plan of harming anyone even if they were. He states that he just needs to be away from them and live on his own. He feels that he will be able to readily find a job and support himself soon after discharge. It also appears that he is likely relying on help from patients that have been recently discharged despite our advice to utilize other supports. Staff report that the patient has been more isolative he has not demonstrated any behavioral disturbances and has been directable. Mental status exam: The patient is alert he is dressed in his own clothing hygie ne grooming adequate. Eye contact is appropriate. He seated calmly in the chair during the session. As the session progresses it clear that he becomes more frustrated. He demonstrates no verbal or physical aggressiveness however. He is primarily focused on learning when he can be discharged from the mental health unit. He does continue to endorse paranoid thinking. At times she does challenge those thoughts stating they may not be real but he is still bothered by those delusional thoughts. He reports no suicidal or homicidal ideation intent or plan. He is reporting no auditory or visual hallucinations today. On other days he states that the hallucinations are always there. Insight and judgment remain impaired. Plan: The patient will continue his current medications however we will discontinue the oral invega. We will consider titrating the Seroquel further. We continue to monitor for safety. We continue to monitor his ability to control any impulsive aggressive behavior. Vital signs reviewed. He requires continued psychiatric hospitalization for further assessment and treatment.
[2019-06-30] MEDS: clonazePAM 0.5 MG TAB PO PRN (14:39)
[2019-06-30] MEDS: QUEtiapine 200 MG TAB PO SCH (20:10)
[2019-07-01] MEDS: busPIRone HCl 5 MG TAB PO SCH ×2 (08:33→20:14)
[2019-07-01] MEDS: NICOTINE 14MG/24HR PATCH TRANSDERM SCH ×2 (10:57→15:57)
[2019-07-01] MEDS: COLLAGENASE 250 UNIT/GM OINTMENT 30 GM TUBE TOPICAL SCH ×2 (10:58→14:15)
--- NOTE | 2019-07-01 12:31 | P.PN ---
Progress Note - Text Progress Note Date: 07/01/19 Interval history: Patient was seen sitting and talking with another patient in the hallway and was directable and agreeable to speak to write in the office. Patient states that he is feeling mildly drowsy this morning and attributes it to possibly the Seroquel however patient wants to remain on the same dose. He states that he slept over 10 hours last night through the night and claims that the medications are helping him "stay calm". Patient denies any irritability or agitation at this time and claims that he is getting along with most people on the unit. He denies any depressive symptoms or any anxiety. Patient asked about discharge and when he could believe in the hospital and typewriter ribbon winder explained to him about the bilingual case manager from [facility] who is looking into housing for him and patient was agreeable to that. At this time patient denies any suicidal or homicidal ideations intent or plan. Denies any Auditory or visual hallucinations. Patient has been compliant with meds. Mental status exam: General Appearance: Patient appears to be stated age is alert, directable and attempts to cooperate. Marginal hygiene and grooming. Behavior: No agitated behavior. Patient is calm and directable Speech: Patient's speech is fluent and nonpressured. Mood/Affect: Mood is improving, affect is congruent and constricted. Suicidality/Homicidality: Patient denies having any suicidal or homicidal ideation intent or plan. Perceptions: Patient denies any auditory or visual hallucinations. Though content/process: Patient is more goal oriented and organized in his thought process. [place]/poverty of content. Memory and concentration: AOX3, grossly intact for the purposes of this session Judgment and insight: improving mildly Assessment/Plan: Continue with current diagnosis. Patient continues to meet criteria for inpatient psychiatric admission for symptom stabilization and saf ety.Patient will be maintained on current psychotropic medication regimen. Monitor for medication compliance and for any psychotropic medication side effects. Will continue to monitor ongoing response to treatment. [facility] bilingual case manager looking into crisis housing likely discharge before the end of the week.
[2019-07-01] MEDS: clonazePAM 0.5 MG TAB PO PRN (14:15)
[2019-07-01] MEDS: QUEtiapine 200 MG TAB PO SCH (20:14)
[2019-07-02] MEDS: NICOTINE 14MG/24HR PATCH TRANSDERM SCH (08:31)
[2019-07-02] MEDS: busPIRone HCl 5 MG TAB PO SCH ×2 (08:31→20:51)
[2019-07-02] MEDS: COLLAGENASE 250 UNIT/GM OINTMENT 30 GM TUBE TOPICAL SCH (08:32)
--- NOTE | 2019-07-02 12:18 | P.PN ---
Progress Note - Text Progress Note Date: 07/02/19 Interval history: Patient was seen coming out of his room and was directable and agreeable to speak to ticket writer in the office. Patient states that he is mildly improving in terms of his mood lability and claims that he has not been feeling angry or impulsive. Patient states that he is getting good sleep at night and does not feel tired this morning. He states that he is interacting well with other people on the unit and going to groups however patient is not able to give details about what he is learning in groups. He states that the medications are helping him "stay calm". Patient denies any irritability or agitation today. He denies any depressive symptoms or any anxiety. Patient asked about discharge once again today and claims that he is going to a "desolate area" and it was explained to him that it would be temporary housing and he would be moved afterwards and patient was directable and agreeable to it. At this time patient denies any suicidal or homicidal ideations intent or plan. Denies any Auditory or visual hallucinations. Patient has been compliant with meds. Mental status exam: General Appearance: Patient appears to be stated age is alert, directable and attempts to cooperate. Marginal hygiene and grooming. Behavior: No agitated behavior. Patient is calm and directable Speech: Patient's speech is fluent and nonpressured. Mood/Affect: Mood is improving, affect is congruent and constricted. Suicidality/Homicidality: Patient denies having any suicidal or homicidal ideation intent or plan. Perceptions: Patient denies any auditory or visual hallucinations. Though content/process: Patient is more goal oriented and organized in his thought process. [place]/poverty of content. Memory and concentration: AOX3, grossly intact for the purposes of this session Judgment and insight: improving mildly Assessment/Plan: Continue with current diagnosis. Patient continues to meet criteria for inpatient psychiatric admission for symptom stabilization and safety. Patient will be maintained on current psychotropic medication regimen. Monitor for medication compliance and for any psychotropic medication side effects. Will continue to monitor ongoing response to treatment. [facility] wrapper caser setting up crisis housing likely discharge before the end of the week.
[2019-07-02] MEDS: clonazePAM 0.5 MG TAB PO PRN (14:44)
[2019-07-02] MEDS: QUEtiapine 200 MG TAB PO SCH (20:51)
[2019-07-03] MEDS: NICOTINE 14MG/24HR PATCH TRANSDERM SCH (09:07)
[2019-07-03] MEDS: busPIRone HCl 5 MG TAB PO SCH ×2 (09:07→20:45)
[2019-07-03] MEDS: COLLAGENASE 250 UNIT/GM OINTMENT 30 GM TUBE TOPICAL SCH (09:08)
--- NOTE | 2019-07-03 12:28 | P.PN ---
Progress Note - Text Progress Note Date: 07/03/19 Interval history: Patient was seen laying down in his room reading a book and agreeable to speak to medical underwriter in the office. Patient spoke about his book that he was reading and states that he just started reading it. He explained the concept of the book about being a viral outbreak and states that he is enjoying it. Patient states that he is mildly improving in terms of his mood lability and anger. He also spoke about leaving group early as he did not like the recreational therapist and states that he "wants to deal with anger my own way". Patient described deep breathing exercises and using his diaphragm to "let the anger flow out of holes". Patient states that he is getting good sleep at night and does not feel tired this morning. He states that he is interacting well with other people on the unit and denies any overnight complaints. Patient denies any irritability or agitation today. He denies any depressive symptoms or any anxiety. At this time patient denies any suicidal or homicidal ideations intent or plan. Denies any Auditory or visual hallucinations. Patient has been compliant with meds. Mental status exam: General Appearance: Patient appears to be stated age is alert, directable and attempts to cooperate. Marginal hygiene and grooming. Behavior: No agitated behavior. Patient is calm and directable Speech: Patient's speech is fluent and nonpressured. Mood/Affect: Mood is improving, affect is congruent and constricted. Suicidality/Homicidality: Patient denies having any suicidal or homicidal ideation intent or plan. Perceptions: Patient denies any auditory or visual hallucinations. Though content/process: Patient is more goal oriented and organized in his thought process. [place]/poverty of content. Memory and concentration: AOX3, grossly intact for the purposes of this session Judgment and insight: improving mildly Assessment/Plan: Continue with current diagnosis. Patient continues to meet criteria for inpatient psychiatric admission for symptom stabilization and safety. Patient will be maintained on current psychotropic medication regimen. Monitor for medication compliance and for any psychotropic medication side effects. Will continue to monitor ongoing response to treatment. machine clothing worker is remaining in touch with [facility] liaison who is setting up crisis housing for patient. Discharge either tomorrow or Sunday.
[2019-07-03] MEDS: clonazePAM 0.5 MG TAB PO PRN (13:47)
[2019-07-03] MEDS: QUEtiapine 200 MG TAB PO SCH (20:45)
[2019-07-04] MEDS: busPIRone HCl 5 MG TAB PO SCH ×2 (08:31→20:44)
[2019-07-04] MEDS: NICOTINE 14MG/24HR PATCH TRANSDERM SCH ×2 (08:31→09:40)
[2019-07-04] MEDS: COLLAGENASE 250 UNIT/GM OINTMENT 30 GM TUBE TOPICAL SCH (12:12)
--- NOTE | 2019-07-04 12:13 | P.PN ---
Progress Note - Text Progress Note Date: 07/04/19 Interval history: Patient was seen looking at the window of his room and agreeable to speak to writer technical publications in the office. Patient offered no overnight complaints however did admit to cheeking his medications yesterday. Patient states that he is mildly improving in terms of his mood lability and anger. He continues to remain impulsive with chronically poor insight. Patient has been having disagreements with recreational therapist and voiced his concerns about the groups and why he has been minimally participating. He states that he slept fairly last night. He states that he is interacting well with other people on the unit thus far. Patient was focused on discharge. He denies any depressive symptoms or any anxiety. At this time patient denies any suicidal or homicidal ideations intent or plan. Denies any Auditory or visual hallucinations. Mental status exam: General Appearance: Patient appears to be stated age is alert, directable and attempts to cooperate. Marginal hygiene and grooming. Behavior: No agitated behavior. Patient is calm and directable. Continues to be unpredictable. Speech: Patient's speech is fluent and nonpressured. Mood/Affect: Mood is improving mildly, affect is congruent and constricted. Suicidality/Homicidality: Patient denies having any suicidal or homicidal ideation intent or plan. Perceptions: Patient denies any auditory or visual hallucinations. Though content/process: Patient is more goal oriented and organized in his thought process. [place]/poverty of content. Memory and concentration: AOX3, grossly intact for the purposes of this session Judgment and insight: Chronically poor insight and judgment, improving mildly Assessment/Plan: Continue with current diagnosis. Patient continues to meet criteria for inpatient psychiatric admission for symptom stabilization and safety. Patient will be maintained on current psychotropic medication regimen. Monitor for medication compliance and for any psychotropic medication side effects. Will continue to monitor ongoing response to treatment. Due to patient's high flight risk and need for safe housing, patient will need to await appropriate transportation to the crisis housing. [facility] will be available early Sunday for safe transportation. Guardian is on board with the plan for discharge at that time. Encourage patient to continue taking oral medications and not cheek them.
[2019-07-04] MEDS: clonazePAM 0.5 MG TAB PO PRN (15:29)
[2019-07-04] MEDS: QUEtiapine 200 MG TAB PO SCH (20:45)
[2019-07-05] MEDS: busPIRone HCl 5 MG TAB PO SCH ×2 (08:18→20:10)
[2019-07-05] MEDS: NICOTINE 14MG/24HR PATCH TRANSDERM SCH (08:19)
[2019-07-05] MEDS: COLLAGENASE 250 UNIT/GM OINTMENT 30 GM TUBE TOPICAL SCH (09:20)
--- NOTE | 2019-07-05 11:10 | P.PN ---
Progress Note - Text Progress Note Date: 07/05/19 Interval history: Patient was seen length and in his bed and agreeable to speak to display card writer in the office. Patient offered no overnight complaints and states that he is doing "okay today". Patient claims that she has not been going to groups because he got an 8 disagreement with the recreational therapist and they don't "see eye to eye".. Patient states that he is mildly improving in terms of his mood lability and anger. He states that he slept fairly last night. He states that he is interacting well with other people on the unit thus far. Patient was focused on discharge and asked again if he will be discharged on Sunday. He denies any depressive symptoms or any anxiety. At this time patient denies any suicidal or homicidal ideations intent or plan. Denies any Auditory or visual hallucinations. Mental status exam: General Appearance: Patient appears to be stated age is alert, directable and attempts to cooperate. Marginal hygiene and grooming. Behavior: No agitated behavior. Patient is calm and directable. improving. Speech: Patient's speech is fluent and nonpressured. Mood/Affect: Mood is improving mildly, affect is congruent and constricted. Suicidality/Homicidality: Patient denies having any suicidal or homicidal ideation intent or plan. Perceptions: Patient denies any auditory or visual hallucinations. Though content/process: Patient is more goal oriented and organized in his thought process. [place]/poverty of content.focused on discharge. Memory and concentration: AOX3, grossly intact for the purposes of this session Judgment and insight: Chronically poor insight and judgment, improving mildly Assessment/Plan: Continue with current diagnosis. Patient continues to meet criteria for inpatient psychiatric admission for symptom stabilization and safety. Patient will be maintained on current psychotropic medication regimen. Monitor for medication compliance and for any psychotropic medication side effects. Will continue to monitor ongoing response to treatment. Due to patient's high flight risk and need for safe housing, patient will need to await appropriate transportation to the crisis housing. [facility] will be available early Sunday for safe transportation. Guardian is on board with the plan for discharge at that time. Encourage patient to continue taking oral medications and not cheek them.
[2019-07-05] MEDS: clonazePAM 0.5 MG TAB PO PRN (14:36)
[2019-07-05] MEDS: QUEtiapine 200 MG TAB PO SCH (20:10)
[2019-07-06] MEDS: busPIRone HCl 5 MG TAB PO SCH ×2 (07:58→20:08)
[2019-07-06] MEDS: NICOTINE 14MG/24HR PATCH TRANSDERM SCH (07:59)
[2019-07-06] MEDS: clonazePAM 0.5 MG TAB PO PRN ×2 (08:51→16:04)
[2019-07-06] MEDS: COLLAGENASE 250 UNIT/GM OINTMENT 30 GM TUBE TOPICAL SCH (09:44)
--- NOTE | 2019-07-06 10:33 | P.PN ---
Progress Note - Text Progress Note Date: 07/06/19 Interval history: Patient was seen sitting at the side of his bed and was agreeable to speak to creative services writer. Patient was in the middle of reading his book and spoke a little bit about the events in his book. He states that "nothing's new" and denied any overnight complaints. He states that he slept well through the night. He claims that he is taking his medications and denies any side effects at this time. He states that he did try to go to groups yesterday. Patient states that he is mildly improving in terms of his mood lability and anger. He states that he is interacting well with other people on the unit thus far and denies any issues. Patient was focused on discharge for Sunday. He denies any depressive symptoms or any anxiety. At this time patient denies any suicidal or homicidal ideations intent or plan. Denies any Auditory or visual hallucinations. Mental status exam: General Appearance: Patient appears to be stated age is alert, directable and attempts to cooperate. Marginal hygiene and grooming. Behavior: No agitated behavior. Patient is calm and directable. improving. Speech: Patient's speech is fluent and nonpressured. Mood/Affect: Mood is improving mildly, affect is congruent and constricted. Suicidality/Homicidality: Patient denies having any suicidal or homicidal ideation intent or plan. Perceptions: Patient denies any auditory or visual hallucinations. Though content/process: Patient is more goal oriented and organized in his thought process. [place]. focused on discharge. Memory and concentration: AOX3, grossly intact for the purposes of this session Judgment and insight: Chronically poor insight and judgment, improving mildly Assessment/Plan: Continue with current diagnosis. Patient continues to meet criteria for inpatient psychiatric admission for symptom stabilization and safety. Patient will be maintained on current psychotropic medication regimen. Will continue to monitor ongoing response to treatment. Due to patient's high flight risk and need for safe housing, patient will need to await appropriate transportation to crisis housing on Sunday. [facility] will be available early Sunday for safe transportation. Guardian is on board with the plan for discharge at that time. Vital signs reviewed. Encouraged participation in milieu.
[2019-07-06] MEDS: QUEtiapine 200 MG TAB PO SCH (20:08)
[2019-07-07 08:38] VITALS: BP 141/74; PULSE 119; RESP 20; TEMP 97.8
[2019-07-07] MEDS: NICOTINE 14MG/24HR PATCH TRANSDERM SCH (08:38)
[2019-07-07] MEDS: busPIRone HCl 5 MG TAB PO SCH (08:39)
[2019-07-07] MEDS: COLLAGENASE 250 UNIT/GM OINTMENT 30 GM TUBE TOPICAL SCH (08:39)
[2019-07-07] MEDS ORDERED: PALIPERIDONE IM 234 MG/1.5 ML SYG IM ONE (11:27)
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
== END 2019-07-07 12:25 | disposition home or self-care (01) | DRG 885 ==
LOC: EC 13:58 → 3MHU 17:45
PROVIDERS: ADMIT Psychiatry & Neurology Psychiatry; ATTEND Psychiatry & Neurology Psychiatry
DX: F25.0 Schizoaffective disorder, bipolar type (principal); T24.232A Burn of second degree of left lower leg, initial encounter; G47.00 Insomnia, unspecified; F12.10 Cannabis abuse, uncomplicated; F41.9 Anxiety disorder, unspecified; F80.81 Childhood onset fluency disorder; Z91.19 Patient's noncompliance with other medical treatment and regimen; F17.210 Nicotine dependence, cigarettes, uncomplicated; Z71.6 Tobacco abuse counseling; Z79.899 Other long term (current) drug therapy; Z91.5 Personal history of self-harm; Z88.0 Allergy status to penicillin; Z88.8 Allergy status to other drugs, medicaments and biological substances
CPT/HCPCS: 16020; 80053; 80061; 80306; 83036; 84443; 85025; 99285

== ENCOUNTER 2019-07-11 16:53 | Inpatient (IN) | payer OTHER, MEDICARE, MEDICAID ==
[2019-07-11] MEDS ORDERED: MAGNESIUM HYDROXIDE 2,400 MG/10 ML CUP PO PRN (17:30)
[2019-07-11] MEDS ORDERED: ZIPRASIDONE 20 MG VIAL IM PRN (17:30)
[2019-07-11] MEDS ORDERED: traZODone HCL 100 MG TAB PO PRN (17:36)
[2019-07-11] MEDS ORDERED: LORazepam 2 MG/ML INJ IM PRN (17:37)
[2019-07-11] MEDS: QUEtiapine 200 MG TAB PO SCH (21:04)
[2019-07-11] MEDS: busPIRone HCl 5 MG TAB PO SCH (21:04)
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
[2019-07-12] MEDS: BACITRACIN 500 UNIT/GM OINT 28.4 GM TUBE TOPICAL SCH ×3 (01:00→21:43)
[2019-07-12 08:11] LABS: Basophils # (A) 0.1 k/uL (0-0.2); Basophils % (A) 1 %; Eosinophils # (A) 0.5 k/uL (0-0.7); Eosinophils % (A) 8 %; HCT 44.9 % (39.0-53.0); HGB 14.7 gm/dL (13.0-17.5); Lymphocytes # (A) 1.6 k/uL (1.0-4.8); Lymphocytes % (A) 28 %; MCH 27.4 pg (25.0-35.0); MCHC 32.8 g/dL (31.0-37.0); MCV 83.5 fL (80.0-100.0); Mean Platelet Volume 6.7; Monocytes # (A) 0.3 k/uL (0-1.0); Monocytes % (A) 5 %; Neutrophils # (A) 3.1 k/uL (1.3-7.7); Neutrophils % (A) 55 %; Platelet Count 251 k/uL (150-450); RBC 5.38 m/uL (4.30-5.90); RDW 12.3 % (11.5-15.5); WBC 5.6 k/uL (3.8-10.6)
[2019-07-12] MEDS: NICOTINE 14MG/24HR PATCH TRANSDERM SCH (08:23)
[2019-07-12] MEDS: busPIRone HCl 5 MG TAB PO SCH ×2 (08:23→20:57)
[2019-07-12 08:24] LABS: ALT 38 U/L (4-49); AST 90 U/L (17-59); African American GFR (CKD) >90 (>60 ml/min/1.73 sqM); Alkaline Phosphatase 76 U/L (38-126); Anion Gap 8 mmol/L; Blood Urea Nitrogen 13 mg/dL (9-20); Calcium 9.1 mg/dL (8.4-10.2); Carbon Dioxide 28 mmol/L (22-30); Chloride 105 mmol/L (98-107); Cholesterol 161 mg/dL (<200); Glucose 82 mg/dL (74-99); HDL Cholesterol 45 mg/dL (40-60); LDL Cholesterol,Calculated 90 mg/dL (0-99); Non-African American GFR(CKD) >90 (>60 ml/min/1.73 sqM); Potassium 4.4 mmol/L (3.5-5.1); Sodium 141 mmol/L (137-145); Total Bilirubin 0.5 mg/dL (0.2-1.3); Total Protein 6.7 g/dL (6.3-8.2); Triglycerides 132 mg/dL (<150)
[2019-07-12] MEDS ORDERED: COLLAGENASE 250 UNIT/GM OINTMENT 30 GM TUBE TOPICAL SCH (12:00)
[2019-07-12] MEDS: LORazepam 1 MG TAB PO PRN ×2 (12:29→21:41)
[2019-07-12 14:41] LABS: Hemoglobin A1C 5.2 % (4.0-6.0)
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
[2019-07-12] MEDS: QUEtiapine 200 MG TAB PO SCH (20:57)
[2019-07-13] MEDS: NICOTINE 14MG/24HR PATCH TRANSDERM SCH (08:35)
[2019-07-13] MEDS: BACITRACIN 500 UNIT/GM OINT 28.4 GM TUBE TOPICAL SCH ×2 (08:35→20:24)
[2019-07-13] MEDS: busPIRone HCl 5 MG TAB PO SCH ×2 (08:35→20:23)
[2019-07-13] MEDS: LORazepam 1 MG TAB PO PRN (13:52)
[2019-07-13] MEDS: ACETAMINOPHEN TAB 325 MG TAB PO PRN (14:44)
--- NOTE | 2019-07-13 17:04 | P.PN ---
Progress Note - Text Progress Note Date: 07/13/19 Interval history: Patient is seen in cross coverage taken. He is found in his room and is cooperative with the interview. He relates that he slept at least 8 hours last night. He seems to be eating well. He does not voice any adverse psychotropic medication side effects. He does describe today having had sprained his ankle and would like something for pain, we discussed Motrin for anti-inflammatory which she is agreeable to. Mental status exam: He is alert and cooperative with the interview. He does not display any agitation. He describes his mood as pretty steady. He does not verbalize any thoughts of harm to self or others. He denies any hallucinations. He does not make any kerry delusional statements. Plan: Patient will be maintained on current psychotropic medication regimen. Continue to monitor for any medication side effects and monitor his ongoing response to treatment.
[2019-07-13] MEDS: QUEtiapine 200 MG TAB PO SCH (20:23)
[2019-07-14] MEDS: NICOTINE 14MG/24HR PATCH TRANSDERM SCH (08:35)
[2019-07-14] MEDS: busPIRone HCl 5 MG TAB PO SCH ×2 (08:35→21:06)
[2019-07-14] MEDS: BACITRACIN 500 UNIT/GM OINT 28.4 GM TUBE TOPICAL SCH ×2 (09:58→21:03)
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
[2019-07-14] MEDS: LORazepam 1 MG TAB PO PRN (11:39)
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
[2019-07-14] MEDS: COLLAGENASE 250 UNIT/GM OINTMENT 30 GM TUBE TOPICAL SCH (15:31)
[2019-07-14] MEDS: QUEtiapine 200 MG TAB PO SCH (21:06)
[2019-07-15] MEDS: NICOTINE 14MG/24HR PATCH TRANSDERM SCH (08:15)
[2019-07-15] MEDS: busPIRone HCl 5 MG TAB PO SCH ×2 (08:16→20:06)
[2019-07-15] MEDS: BACITRACIN 500 UNIT/GM OINT 28.4 GM TUBE TOPICAL SCH ×2 (10:11→20:55)
[2019-07-15] MEDS: COLLAGENASE 250 UNIT/GM OINTMENT 30 GM TUBE TOPICAL SCH (10:11)
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
[2019-07-15] MEDS: LORazepam 1 MG TAB PO PRN (11:53)
[2019-07-15] MEDS: QUEtiapine 200 MG TAB PO SCH (20:06)
[2019-07-16] MEDS: BACITRACIN 500 UNIT/GM OINT 28.4 GM TUBE TOPICAL SCH ×2 (09:15→20:10)
[2019-07-16] MEDS: COLLAGENASE 250 UNIT/GM OINTMENT 30 GM TUBE TOPICAL SCH (09:15)
[2019-07-16] MEDS: busPIRone HCl 5 MG TAB PO SCH ×2 (09:15→20:11)
[2019-07-16] MEDS: NICOTINE 14MG/24HR PATCH TRANSDERM SCH (09:15)
[2019-07-16 10:06] LABS: Basophils % (A) 1 %; Eosinophils # (A) 0.5 k/uL (0-0.7); Eosinophils % (A) 8 %; HCT 48.5 % (39.0-53.0); HGB 15.7 gm/dL (13.0-17.5); Lymphocytes # (A) 1.2 k/uL (1.0-4.8); Lymphocytes % (A) 21 %; MCH 27.1 pg (25.0-35.0); MCHC 32.4 g/dL (31.0-37.0); MCV 83.5 fL (80.0-100.0); Mean Platelet Volume 6.9; Monocytes # (A) 0.3 k/uL (0-1.0); Monocytes % (A) 5 %; Neutrophils # (A) 3.7 k/uL (1.3-7.7); Neutrophils % (A) 63 %; Platelet Count 255 k/uL (150-450); RDW 12.5 % (11.5-15.5); WBC 5.8 k/uL (3.8-10.6)
[2019-07-16] MEDS: cloZAPine 25 MG TAB PO SCH ×2 (12:03→20:11)
--- NOTE | 2019-07-17 09:14 | PN ---
PROGRESS NOTE DATE OF SERVICE: 07/16/2019 CHIEF COMPLAINT: The patient had paranoid delusions believing his family member was involved with GERMAINE. He apparently had threatened to kill that person. INTERVAL HISTORY: Patient has been doing fair. He had a quiet evening last night. He had attended half the groups yesterday. He seemed to do okay in group. He comes out in the day area. He wanders about the unit, often he will just walk in a seemingly purposeless manner, walk slowly and look around as he walks. He slept fairly well last night. Today he has been up, he comes out in the day area. He has been appropriate in his behavior. He continues to talk about the issues that he believes are accurate in regard to the family member being part of GERMAINE. When I asked him details about that, what he said was that he started putting ideas together such as this person not being in contact with other people for several days, that this person had made telephone calls that seem to be unusual. The patient did not provide any specific information that the person had done anything out of the ordinary. His rationale was that he put a lot of different ideas together and concluded that this must be the case. He had difficulty accepting that there was a significant likelihood that he could just be having paranoid thinking and that there could be many other explanations for what he was observing. For the most part, the patient has been in a reasonable mood. He tends to be quiet on the unit. He will interact a little with others. He tolerates his psychotropic medications. He has been appropriate with care. MENTAL STATUS: Patient sat without restlessness, he gave fair eye contact. Psychomotor activity was a little slowed. He answered questions appropriately. His thoughts were clear. His affect was somewhat constricted. He smiled on an off through the interview, though he had more of a serious manner than not. His mood was dysphoric. He seemed moderately distressed. He continues to have significant paranoid delusions. The longer we talked in the interview, the more he seemed to get caught up in delusions about GERMAINE as well as a number of other things where he believes family members are a threat to him. He continues to have some thoughts that these people that he has feared full of need to have some kind of "justice." He seemed to suggest that in his mind that "justice" would mean his putting their safety at risk. He denied thoughts of suicide. He was vague when I asked specifically if he had thoughts of harming anyone else. ASSESSMENT: I will continue the current diagnosis and treatment plan. Patient will be started on Clozaril, I will start 25 mg twice a day. I would look to titrate up a little bit more quickly than the recommended 25 mg a day increments, given that he is in the hospital and under good observation. We will likely need to get his dose at least to the 200 mg range before we see much benefit. I reviewed medication issues with the patient. I talked about indications and potential side effects. I reviewed metabolic concerns. I discussed issues related to the regular blood draws that will be necessary over the first year of treatment and beyond. I reviewed expectations related to clozapine therapy. We will focus on stabilization and discharge planning. KVNG / JOHANA: [id number] /
[2019-07-17] MEDS: cloZAPine 25 MG TAB PO SCH ×2 (10:12→20:30)
[2019-07-17] MEDS: BACITRACIN 500 UNIT/GM OINT 28.4 GM TUBE TOPICAL SCH ×2 (10:12→20:56)
[2019-07-17] MEDS: busPIRone HCl 5 MG TAB PO SCH ×2 (10:12→20:30)
[2019-07-17] MEDS: NICOTINE 14MG/24HR PATCH TRANSDERM SCH (10:13)
[2019-07-17] MEDS: COLLAGENASE 250 UNIT/GM OINTMENT 30 GM TUBE TOPICAL SCH (10:13)
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
[2019-07-17] MEDS: LORazepam 1 MG TAB PO PRN (16:50)
[2019-07-18] MEDS: cloZAPine 25 MG TAB PO SCH ×2 (08:21→20:06)
[2019-07-18] MEDS: NICOTINE 14MG/24HR PATCH TRANSDERM SCH (08:21)
[2019-07-18] MEDS: busPIRone HCl 5 MG TAB PO SCH ×2 (08:21→20:07)
[2019-07-18] MEDS: COLLAGENASE 250 UNIT/GM OINTMENT 30 GM TUBE TOPICAL SCH (08:22)
[2019-07-18] MEDS: BACITRACIN 500 UNIT/GM OINT 28.4 GM TUBE TOPICAL SCH ×2 (08:22→20:05)
--- NOTE | 2019-07-18 10:20 | P.PN ---
Progress Note - Text Interval history: The patient's found in his room he does not wish to speak in an interview room. He is partially cooperative with the session today. He indicates his mood is good he quickly denies having any symptoms. He reports having no questions regarding his medications he is reporting no side effects. He states that he did get up to eat breakfast. He reports he attended no groups yesterday. Mental status exam: The patient is an alert male he is lying in bed he is looking up at the ceiling he makes no eye contact. Hygiene grooming adequate. He has no spontaneous speech he provides brief answers to questions asked. He denies having any symptoms which is unlikely considering the nature of his previously noted fixed delusions. He is demonstrating no verbal or physical aggressiveness during our interaction. He is demonstrating no involuntary repetitive movements. He was oriented to day of the week as Elia joshi. Insight and judgment remain poor. Plan: The patient will continue on his current medications we will titrate the Clozaril to 25 mg daily and 50 mg at bedtime. Vital signs reviewed. Most r ecent lab work reviewed. His absolute neutrophil count remains appropriate for continued use of Clozaril. He is encouraged to participate in the milieu. We will monitor him for safety. Again her goal is to attenuate his symptoms of psychosis so that he is appropriate for transition back to an [facility] home type setting. At this time he is not appropriate for that level of care and requires continued hospitalization for safety reasons.
[2019-07-18 14:35] VITALS: BMI 26.2
[2019-07-18] MEDS: LORazepam 1 MG TAB PO PRN (15:42)
--- NOTE | 2019-07-19 08:25 | P.PN ---
Progress Note - Text Interval history: The patient is found in his room he is lying in bed. He does not wish to speak in an interview room. Staff reported he slept 8 hours last evening. He remains compliant with medication. Again he is minimally participating in the session. He provides brief answers and again denies having any psychiatric symptoms. He states he has not been speaking to anybody via phone. Social work notes reviewed he has been hanging up on his foster and biological mothers. The plan is for him to go to an [facility] home upon discharge. He has no questions regarding his psychiatric treatment. Nursing reports no behavioral disturbances. He did not yet go down for breakfast. Mental status exam. The patient is alert he is lying in bed he makes no eye contact. As noted he minimally participates in answering questions. He demonstrates no verbal or physical aggressiveness he demonstrates no involuntary repetitive movements. Insight and judgment are impaired. I presume it he continues to experience the same symptoms of psychosis in terms of paranoid and persecutory thinking. As part of denying all symptoms he states he has no suicidal or homicidal thoughts. He is endorsing no hallucinations. Plan: The patient will continue on his current psychotropic medication we will plan to continue titrating the Clozaril to address acute symptoms of psychosis. He is encouraged to participate in the milieu. We will monitor the acuity of his psychosis as we continue to evaluate him. Vital signs reviewed. He requires continued psychiatric hospitalization.
[2019-07-19] MEDS: COLLAGENASE 250 UNIT/GM OINTMENT 30 GM TUBE TOPICAL SCH (09:24)
[2019-07-19] MEDS: BACITRACIN 500 UNIT/GM OINT 28.4 GM TUBE TOPICAL SCH ×2 (09:24→21:11)
[2019-07-19] MEDS: busPIRone HCl 5 MG TAB PO SCH ×2 (09:24→21:14)
[2019-07-19] MEDS: cloZAPine 25 MG TAB PO SCH ×2 (09:24→21:14)
[2019-07-19] MEDS: NICOTINE 14MG/24HR PATCH TRANSDERM SCH (09:35)
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
[2019-07-19] MEDS: LORazepam 1 MG TAB PO PRN (18:25)
[2019-07-19] MEDS: BENZTROPINE MESYLATE 0.5 MG TAB PO PRN (18:25)
[2019-07-19] MEDS: MAG HYDROX/AL HYDROX/SIMETH 30 ML CUP PO PRN (19:12)
[2019-07-19] MEDS: ACETAMINOPHEN TAB 325 MG TAB PO PRN (19:12)
[2019-07-20] MEDS: NICOTINE 14MG/24HR PATCH TRANSDERM SCH (08:05)
[2019-07-20] MEDS: cloZAPine 25 MG TAB PO SCH ×2 (08:06→21:03)
[2019-07-20] MEDS: BENZTROPINE MESYLATE 0.5 MG TAB PO PRN (08:06)
[2019-07-20] MEDS: busPIRone HCl 5 MG TAB PO SCH ×2 (08:06→21:03)
[2019-07-20] MEDS: COLLAGENASE 250 UNIT/GM OINTMENT 30 GM TUBE TOPICAL SCH (08:06)
[2019-07-20] MEDS: BACITRACIN 500 UNIT/GM OINT 28.4 GM TUBE TOPICAL SCH ×2 (10:59→21:02)
--- NOTE | 2019-07-20 12:26 | P.PN ---
Progress Note - Text Interval history: The patient is found in his room he follows me to an interview room. He indicates his mood is fine. He has reported chest pain internal medicine did evaluate that there appears to be no cardiac etiology. He indicates he is sleeping. Appetite stable. He continues to avoid groups. He states that he did speak to his mother via phone. He states the conversation went well. He now states that he no longer believes that his foster mother as part of places he states that was a delusion and he was mistaken. He has been displaying a stutter during the hospitalization. He feels it's due to the clozapine. I did remind him that that was present before we started the clozapine. He then becomes quickly irritable and uses some profanity. I was able to redirect him to a different topic. At the end of the session he apologized for getting angry. Mental status exam: The patient is alert he is dressed in his own clothing hygiene grooming adequate. Eye contact is appropriate. Speech is fluent and spontaneous nonpressured. He quickly denies having any psychiatric symptoms as we reviewed possibilities. As noted above there was an acute change in his affect from constricted to irritable when I did not agree with his statement. Insight and judgment remain impaired. He reports no suicidal or homicidal th oughts. There've been no reports of any behavioral disturbance recently. He remains oriented to person place and date. He reports auditory hallucinations but states they have not been derogatory and are not commanding. Plan: The patient will continue on his current psychotropic medication we will titrate the Clozaril further at bedtime to 75 mg. Vital signs reviewed. We will monitor him for safety and encourage some participation in the milieu. Efforts will be made to reality test him and to provide reality orientation.
[2019-07-20] MEDS: IBUPROFEN 400 MG TAB PO PRN (14:01)
[2019-07-21] MEDS: BACITRACIN 500 UNIT/GM OINT 28.4 GM TUBE TOPICAL SCH ×2 (08:26→20:45)
[2019-07-21] MEDS: NICOTINE 14MG/24HR PATCH TRANSDERM SCH (08:26)
[2019-07-21] MEDS: busPIRone HCl 5 MG TAB PO SCH ×2 (08:26→20:42)
[2019-07-21] MEDS: COLLAGENASE 250 UNIT/GM OINTMENT 30 GM TUBE TOPICAL SCH (08:27)
[2019-07-21] MEDS: cloZAPine 25 MG TAB PO SCH ×2 (08:27→20:42)
--- NOTE | 2019-07-21 11:00 | P.PN ---
Progress Note - Text Interval history: The patient is found in his room prefers to speak in his room today. He states his mood is fine. Continues to state that he is sleeping adequately and appetite is stable. He reports he spoke to his parents via phone and states he told [place] It is part of the plan for him to go to an [facility] home upon discharge however. He has no questions regarding his medication. He has not attended any groups this morning he is encouraged to attend. Staff report no behavioral disturbances. Mental status exam: The patient is alert he is lying in bed. He does make eye contact. He has no spontaneous speech but provides brief answers to questions. There was no stuttering behavior today. He denies having any psychiatric symptoms including suicidal or homicidal ideation is endorsing no visual hallucinations or specific delusions. He states "those are all gone". It is likely that his delusional thoughts and auditory hallucinations still persist. He demonstrated no verbal or physical aggressiveness. He maintained a blunted affect throughout our interaction. Insight and judgment are still impaired. He demonstrates no evidence of any repetitive involuntary movements. Plan: The patient requires continued psychiatric hospitalization. We will continue his medication as written we will continue titrating the Clozaril as appropriate. Vital signs reviewed. We would like to see his psychosis symptoms attenuated and for him to be able to exert control over his aggressive reactions/behavior.
[2019-07-21] MEDS: MAG HYDROX/AL HYDROX/SIMETH 30 ML CUP PO PRN (13:57)
[2019-07-21] MEDS: IBUPROFEN 400 MG TAB PO PRN (16:13)
[2019-07-22] MEDS: cloZAPine 25 MG TAB PO SCH (09:31)
[2019-07-22] MEDS: busPIRone HCl 5 MG TAB PO SCH ×2 (09:31→20:15)
[2019-07-22] MEDS: NICOTINE 14MG/24HR PATCH TRANSDERM SCH (09:31)
[2019-07-22] MEDS: COLLAGENASE 250 UNIT/GM OINTMENT 30 GM TUBE TOPICAL SCH ×2 (09:33→14:41)
[2019-07-22] MEDS: BACITRACIN 500 UNIT/GM OINT 28.4 GM TUBE TOPICAL SCH ×2 (09:33→20:15)
--- NOTE | 2019-07-22 11:09 | P.PN ---
Progress Note - Text Interval history: The patient is found in his room he lying in bed he prefers to speak in his room. He states his mood is fine. Again he minimally participates in the interview. He quickly denies having any psychiatric symptoms as we reviewed possibilities. Staff report that he very briefly attended 1 group yesterday. He is noted to ambulate in the hallway at times. He is going down for meals. He has no questions or concerns regarding his medication. When asked what he is thinking about he states "nothing". When asked what his future plans are he states he wants to finish his degree. Mental status exam: The patient's lying in bed his eyes are open he is looking up at the ceiling. He makes no eye contact with me today. Speech is fluent nonpressured he provides very brief answers to questions. As noted he denies having any symptoms as we review possible psychiatric symptoms. Again this is not likely a valid report. He is demonstrating no verbal or physical aggressiveness during our interaction he demonstrates no involuntary repetitive movements. Insight and judgment impaired. He maintains a blunted affect throughout the session. Plan: The patient appears to be underreporting symptoms to facilitate a discharge. I will continue to titrate the Clozaril and we will increase by another 25 mg at the bedtime dose. Just this past weekend he demonstrated affect lability and irritability during our session. We will continue to evaluate his ability to control aggressive impulses and try to assess his psyc hosis. Vital signs reviewed. He requires continued psychiatric hospitalization until he is further stabilized.
[2019-07-22] MEDS: IBUPROFEN 400 MG TAB PO PRN (14:43)
[2019-07-22] MEDS: cloZAPine 100 MG TAB PO SCH (20:14)
[2019-07-23] MEDS: busPIRone HCl 5 MG TAB PO SCH ×2 (08:53→20:39)
[2019-07-23] MEDS: NICOTINE 14MG/24HR PATCH TRANSDERM SCH ×2 (08:53→08:54)
[2019-07-23] MEDS: COLLAGENASE 250 UNIT/GM OINTMENT 30 GM TUBE TOPICAL SCH (08:53)
[2019-07-23] MEDS: cloZAPine 25 MG TAB PO SCH (08:53)
--- NOTE | 2019-07-23 10:20 | P.PN ---
Progress Note - Text Interval history: The patient is found in his room he prefers to speak their. He reports he was up for breakfast. He states he typically stays in bed in the morning and we'll ambulate in the afternoon. Participation is minimal. He feels that he may be stuttering because of the clozapine. That seems to be an intermittent finding. Again stuttering behavior was noted prior to starting the clozapine. He states that he is thinking clearly. He reports that he never had any symptoms prior to coming to the hospital. Mental status exam: The patient is alert he is lying in bed he makes eye contact a few times during the session. He continues to deny having any symptoms. At times he demonstrates some irritability with his affect in answering questions. He continues to demonstrate a lack of insight into his presenting illness. He is minimizing report of symptoms at this time to facilitate a discharge. He reports no suicidal or homicidal thoughts she is reporting no auditory or visual hallucinations at this point. Although its likely that his delusional thoughts persist he denies having them. He is demonstrating no verbal or physical aggressiveness during our interaction. He initiates no conversation. Plan: The patient will continue on his current psychotropic medication. We will monitor him for safety. He is encouraged to participate in the milieu although he is refusing. Vital signs reviewed they're within normal limits. He requires continued psychiatric hospitalization at this time.
[2019-07-23 11:56] LABS: Basophils # (A) 0.1 k/uL (0-0.2); Basophils % (A) 1 %; Eosinophils # (A) 0.5 k/uL (0-0.7); Eosinophils % (A) 10 %; HGB 15.7 gm/dL (13.0-17.5); Lymphocytes # (A) 1.4 k/uL (1.0-4.8); Lymphocytes % (A) 25 %; MCH 26.2 pg (25.0-35.0); MCHC 31.4 g/dL (31.0-37.0); MCV 83.5 fL (80.0-100.0); Mean Platelet Volume 6.9; Monocytes # (A) 0.3 k/uL (0-1.0); Monocytes % (A) 5 %; Neutrophils # (A) 3.2 k/uL (1.3-7.7); Neutrophils % (A) 57 %; Platelet Count 264 k/uL (150-450); RBC 5.99 m/uL (4.30-5.90); RDW 12.6 % (11.5-15.5); WBC 5.5 k/uL (3.8-10.6)
[2019-07-23] MEDS: BACITRACIN 500 UNIT/GM OINT 28.4 GM TUBE TOPICAL SCH ×2 (13:52→20:38)
[2019-07-23] MEDS: cloZAPine 100 MG TAB PO SCH (20:39)
[2019-07-24] MEDS: cloZAPine 25 MG TAB PO SCH ×2 (09:08→20:11)
[2019-07-24] MEDS: busPIRone HCl 5 MG TAB PO SCH ×2 (09:08→20:11)
[2019-07-24] MEDS: BACITRACIN 500 UNIT/GM OINT 28.4 GM TUBE TOPICAL SCH ×2 (09:08→20:10)
[2019-07-24] MEDS: NICOTINE 14MG/24HR PATCH TRANSDERM SCH ×2 (09:09→11:15)
[2019-07-24] MEDS: COLLAGENASE 250 UNIT/GM OINTMENT 30 GM TUBE TOPICAL SCH (09:09)
--- NOTE | 2019-07-24 10:00 | P.PN ---
Progress Note - Text Interval history: The patient is found in the dining room he follows me to an interview room. He indicates he is eating and sleeping adequately. He is asking about a discharge date. He stated that we wanted to arrange a family meeting next in terms of working on discharge planning. He has no questions or concerns regarding his medications today. He has no spontaneous speech but will provide brief answers. There have been no reports of any behavioral disturbance. Again other than meals the patient tends to isolate in his room. He states he doesn't want to go to groups because he doesn't like the person leading them. Mental status exam: The patient is a male appearing his stated age. He is dressed in his own clothing hygiene grooming adequate. Eye contact is poor he is looking straight ahead in another direction from me. He will make brief eye contact only a few times during the session. Affect remains blunted. He reports no suicidal or homicidal ideation intent or plan. He initially reports having no hallucinations then when that is challenged he states that they are still there but they're quiet and present as whispering. He demonstrates some frustration that I keep asking questions about symptoms of psychosis. He denies having any delusional thought content. He demonstrated no verbal or physical aggressiveness however. He demonstrates no involuntary repetitive movements. Insight and judgment limited. Plan: The patient will continue on the medications as written we will continue to titrate the Clozaril as needed. He will continue on the Invega Sustenna. Social work will arrange a support meeting which will help us determine if he is truly improving clinically or just underreporting symptoms still. We will monitor him for safety he is encouraged to participate in the milieu. Vital signs are reviewed.
[2019-07-24] MEDS: LORazepam 1 MG TAB PO PRN (11:14)
[2019-07-24] MEDS: BENZTROPINE MESYLATE 0.5 MG TAB PO PRN (11:16)
[2019-07-25] MEDS: NICOTINE 14MG/24HR PATCH TRANSDERM SCH (08:16)
[2019-07-25] MEDS: cloZAPine 25 MG TAB PO SCH ×2 (08:16→20:39)
[2019-07-25] MEDS: busPIRone HCl 5 MG TAB PO SCH ×2 (08:16→20:38)
[2019-07-25] MEDS: BACITRACIN 500 UNIT/GM OINT 28.4 GM TUBE TOPICAL SCH ×2 (08:17→22:01)
[2019-07-25] MEDS: COLLAGENASE 250 UNIT/GM OINTMENT 30 GM TUBE TOPICAL SCH (08:17)
--- NOTE | 2019-07-25 10:18 | P.PN ---
Progress Note - Text The patient is found in his room prefers to speak in his room today. Again he minimally participates. He indicates he has no symptoms with brief answers to questions. He reports that he is thinking about nothing. He was observed ambulating in the hallway earlier on his way to breakfast. He continues to abstain from groups. Notes from social work were reviewed. Social work had contacted the patient's guardian and mother who indicated the patient was verbalizing feelings of anger towards her. It appeared there may have been some paranoid content described in the conversation. Mental status exam: The patient is alert he is lying in bed eye contact is intermittent. He reports having no symptoms. He reports no questions or concerns regarding his medication. He reports no suicidal ideation intent or plan. We continue to feel that he is underreporting symptoms to facilitate a discharge. He is demonstrating no verbal or physical aggressiveness. He demonstrates no abnormal involuntary movements. With some of his speech she does demonstrate some stuttering. Insight and judgment are impaired. Affect was blunted. Plan: The patient will continue on his current psychotropic medication. I will schedule the Cogentin to see if there is any benefit with the use of that medication. We will monitor him for safety. Social work continues to try to arrange a support meeting involving his guardian. We would prefer that be in person but it may be done by phone if necessary. I believe the patient continues to have paranoid thinking. He requires continued psychiatric hospitalization for safety reasons. Vital signs reviewed they're within normal limits. Recent lab work reviewed and his ANC is appropriate for continued use of clozapine.
[2019-07-25] MEDS: BENZTROPINE MESYLATE 0.5 MG TAB PO SCH (20:39)
[2019-07-26] MEDS: busPIRone HCl 5 MG TAB PO SCH ×2 (08:17→20:52)
[2019-07-26] MEDS: NICOTINE 14MG/24HR PATCH TRANSDERM SCH (08:17)
[2019-07-26] MEDS: BACITRACIN 500 UNIT/GM OINT 28.4 GM TUBE TOPICAL SCH ×2 (08:17→21:55)
[2019-07-26] MEDS: BENZTROPINE MESYLATE 0.5 MG TAB PO SCH ×2 (08:17→21:55)
[2019-07-26] MEDS: cloZAPine 25 MG TAB PO SCH ×2 (08:18→20:52)
[2019-07-26] MEDS: COLLAGENASE 250 UNIT/GM OINTMENT 30 GM TUBE TOPICAL SCH (08:18)
[2019-07-26] MEDS: LORazepam 1 MG TAB PO PRN (08:30)
[2019-07-26] MEDS: IBUPROFEN 400 MG TAB PO PRN (16:21)
--- NOTE | 2019-07-26 17:45 | P.PN ---
Progress Note - Text Progress Note Date: 07/26/19 Subjective: Patient was seen today as a cross coverage for Dr. Dickson. The patient was evaluated, chart reviewed, case discussed with the treatment team. Patient reported good sleep last night and he denies any appetite problems. Patient has not been going to groups and other unit activities. The patient is compliant with his medications and denies any adverse reactions. And continued to stay in his room for most of the time and has minimal interaction with other peers. He denies feeling depressed, hopeless, or suicidal. He denies any mood swings, homicidal ideation, or agitation. Patient denies any psychotic symptoms including hallucinations, paranoid ideation, denied delusions could be elicited. He denies any manic symptoms including a euphoric mood, grandiosity, or absence need to sleep due to unusual increase in activities. He was talking about plan of discharge to go to [facility] on Sunday and eventually he wants to get back to his mother's house. Objective: Vitals has been reviewed. Mental status examination; Appearance: The patient appears stated age, adequately groomed and dressed, no specific features. Gait/posture: Normal gait, Normal arm swinging: No abnormal movements. Attitude and behavior: engaged, cooperative, eye contact. Motor activity: Normal psychomotor activity Speech: Normal rate, tone. Mood: Anxious Affect: Constricted Thought form: goal-directed, linear, coherent. Thought content: Non-delusional, denies suicidal thoughts, denies homicidal thoughts, denies intentions or plans. Perception: Denies any auditory or visual hallucinations Attention: No impairment. Orientation: Patient patient was fully oriented to time place person and situation. Insight: Patient has fair insight about his psychiatric disorder. Judgment: Patient has fair judgment about his psychiatric treatment. Assessment: Schizoaffective disorder by history. Rule out substance use disorder. Plan: Continue inpatient level of care due to need for further stabilization on medication and discharge planning Precautions: Continue 15 minutes check for safety. Consider medical consultation if any acute medical issues arise. Provide the patient individual, group therapy, substance use disorder counseling to give better insight and learn coping skills. Medications: Continue clozapine 25 mg in the morning and 125 mg at bedtime for mood stabilization and psychotic symptoms. Continue Cogentin 0.5 mg twice daily for EPS symptoms. Continue BuSpar 15 mg twice daily for anxiety symptoms. Continue Ativan when necessary for anxiety symptoms. Patient is a scheduled to receive Invega long-acting injectable 234 mg on 07/28. Labs: Continue CBC monitoring as per clozapine registry Discharge patient to OUTPATIENT services upon a stabilization
[2019-07-27] MEDS: COLLAGENASE 250 UNIT/GM OINTMENT 30 GM TUBE TOPICAL SCH (09:13)
[2019-07-27] MEDS: BACITRACIN 500 UNIT/GM OINT 28.4 GM TUBE TOPICAL SCH ×2 (09:13→22:29)
[2019-07-27] MEDS: NICOTINE 14MG/24HR PATCH TRANSDERM SCH (09:14)
[2019-07-27] MEDS: cloZAPine 25 MG TAB PO SCH ×4 (09:14→20:48)
[2019-07-27] MEDS: busPIRone HCl 5 MG TAB PO SCH ×2 (09:14→20:49)
[2019-07-27] MEDS: BENZTROPINE MESYLATE 0.5 MG TAB PO SCH ×2 (09:14→20:49)
--- NOTE | 2019-07-27 14:04 | P.PN ---
Progress Note - Text Progress Note Date: 07/27/19 Subjective: Patient was seen today as a cross coverage for Dr. Dickson. The patient was evaluated, chart reviewed, case discussed with the treatment team. Patient presented the same that he has been guarded and superficial in his answers. Patient has minimal interaction with other peers and he stays in his room for most of the time. He reports good sleep last night and he denies any appetite problems. The patient is compliant with his medications and denies any adverse reactions. Patient denies feeling depressed, hopeless, or suicidal. He denies any mood swings, homicidal ideation, or agitation. Patient denies any psychotic symptoms including hallucinations, paranoid ideation, denied delusions could be elicited. He denies any manic symptoms including a euphoric mood, grandiosity, or absence need to sleep due to unusual increase in activities. Objective: Vitals has been reviewed. Mental status examination; Appearance: The patient appears stated age, adequately groomed and dressed, no specific features. Gait/posture: Normal gait, Normal arm swinging: No abnormal movements. Attitude and behavior: engaged, cooperative, eye contact. Motor activity: Normal psychomotor activity Speech: Normal rate, tone. Mood: "Fine" Affect: Restricted Thought form: goal-directed, linear, coherent. Thought content: Non-delusional, denies suicidal thoughts, denies homicidal thoughts, denies intentions or plans. Perception: Denies any auditory or visual hallucinations Attention: No impairment. Orientation: Patient patient was fully oriented to time place person and situation. Insight: Patient has fair insight about his psychiatric disorder. Judgment: Patient has fair judgment about his psychiatric treatment. Assessment: Schizoaffective disorder by history. Rule out substance use disorder. Plan: Continue inpatient level of care due to need for further stabilization on medication and discharge planning Precautions: Continue 15 minutes check for safety. Consider medical consultation if any acute medical issues arise. Provide the patient individual, group therapy, substance use disorder counseling to give better insight and learn coping skills. Medications: Continue clozapine 25 mg in the morning and 125 mg at bedtime for mood stabilization and psychotic symptoms. Continue Cogentin 0.5 mg twice daily for EPS symptoms. Continue BuSpar 15 mg twice daily for anxiety symptoms. Continue Ativan when necessary for anxiety symptoms. Patient is a scheduled to receive Invega long-acting injectable 234 mg on 07/28. Labs: Continue CBC monitoring as per clozapine registry Discharge patient to OUTPATIENT services upon a stabilization
--- NOTE | 2019-07-28 11:18 | P.PN ---
Progress Note - Text Interval history: The patient is found in his room he prefers to speak in his room. Again he reports his mood is fine he denies having any symptoms. He indicates he sleeping at night and appetite is stable. He continues to refrain from group attendance. He does go down for meals. Social work informed me that a phone family meeting was held. It appears that the patient was able to tolerate the conversation without any agitation or mood instability. He is agreeable to temporary AF home placement. He has no questions or concerns. He continues to comply with his medication. Mental status exam: The patient is alert he is lying in bed he maintains eye contact. He has no spontaneous speech but provides brief answers. He indicates his mood is fine affect remains blunted. He reports no suicidal or homicidal ideation intent or plan. He reports no auditory or visual hallucinations at this time he is reporting no specific delusions as we reviewed several types. He demonstrates no verbal or physical aggressiveness he demonstrates no involuntary repetitive movements. We reviewed we'll to discuss a discharge plan including halfway placement and he was able to tolerate that conversation without any agitation. Plan: The patient will continue on his current medications. We are considering discharge to the AF home again in the next 1-2 days. We will continue to monitor him for safety and encourage participation in the milieu. Vital signs reviewed.
[2019-07-28] MEDS: busPIRone HCl 5 MG TAB PO SCH ×2 (11:40→20:12)
[2019-07-28] MEDS: BENZTROPINE MESYLATE 0.5 MG TAB PO SCH ×2 (11:41→20:10)
[2019-07-28] MEDS: NICOTINE 14MG/24HR PATCH TRANSDERM SCH ×2 (11:41→12:19)
[2019-07-28] MEDS: COLLAGENASE 250 UNIT/GM OINTMENT 30 GM TUBE TOPICAL SCH (11:41)
[2019-07-28] MEDS: cloZAPine 25 MG TAB PO SCH ×2 (11:42→20:14)
[2019-07-28 11:44] VITALS: BP 114/79; PULSE 133; RESP 18; TEMP 98.1
[2019-07-28] MEDS: BACITRACIN 500 UNIT/GM OINT 28.4 GM TUBE TOPICAL SCH ×2 (11:54→20:10)
[2019-07-28] MEDS ORDERED: PALIPERIDONE IM 234 MG/1.5 ML SYG IM ONE (12:00)
[2019-07-29] MEDS: busPIRone HCl 5 MG TAB PO SCH (10:01)
[2019-07-29] MEDS: BACITRACIN 500 UNIT/GM OINT 28.4 GM TUBE TOPICAL SCH (10:01)
[2019-07-29] MEDS: cloZAPine 25 MG TAB PO SCH (10:02)
[2019-07-29] MEDS: COLLAGENASE 250 UNIT/GM OINTMENT 30 GM TUBE TOPICAL SCH (10:03)
[2019-07-29] MEDS: BENZTROPINE MESYLATE 0.5 MG TAB PO SCH (10:03)
[2019-07-29] MEDS: NICOTINE 14MG/24HR PATCH TRANSDERM SCH (10:04)
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
== END 2019-07-29 12:26 | disposition home or self-care (01) | DRG 885 ==
LOC: 3MHU 18:14
PROVIDERS: ADMIT Psychiatry & Neurology Psychiatry; ATTEND Psychiatry & Neurology Psychiatry
DX: F25.0 Schizoaffective disorder, bipolar type (principal); L97.912 Non-pressure chronic ulcer of unspecified part of right lower leg with fat layer exposed; F12.20 Cannabis dependence, uncomplicated; F17.210 Nicotine dependence, cigarettes, uncomplicated; F80.81 Childhood onset fluency disorder; S93.409A Sprain of unspecified ligament of unspecified ankle, initial encounter; T24.232A Burn of second degree of left lower leg, initial encounter; Z79.899 Other long term (current) drug therapy; Z82.49 Family history of ischemic heart disease and other diseases of the circulatory system; Z91.83 Wandering in diseases classified elsewhere; Z82.61 Family history of arthritis; Z88.0 Allergy status to penicillin; Z88.8 Allergy status to other drugs, medicaments and biological substances
CPT/HCPCS: 80053; 80061; 83036; 84443; 84484; 85025; 93005